=== PATIENT | female | born 1955 | race Caucasian/White ===

== ENCOUNTER → 2016-11-22 | Outpatient (CLI) | payer BC ==
[~2016-11-22] MED LIST: MULT-506 PO; VITAMIN C PO
[2016-11-22 12:28] LABS: HEMATOCRIT 41.1 % (37-47); MEAN CELL VOLUME 86.3 fL (80-100); MEAN CORPUSCULAR HEMOGLOBIN 30.3 pg (25-34); MEAN PLATELET VOLUME 11.4 fL (7.4-10.4); PLATELET COUNT 283 K/uL (130-400); RED BLOOD COUNT 4.76 M/uL (4.2-5.4); WHITE BLOOD COUNT 4.42 K/uL (4.8-10.8)
[2016-11-22 12:44] LABS: BLOOD UREA NITROGEN 17 mg/dl (7-18); BUN/CREATININE RATIO 24.9 (10-20); CARBON DIOXIDE 25 mmol/L (21-32); CHLORIDE 105 mmol/L (98-107); CREATININE 0.67 mg/dl (0.60-1.20); GLUCOSE 277 mg/dl (70-99); POTASSIUM 3.9 mmol/L (3.5-5.1); SODIUM 138 mmol/L (136-145)
== END | disposition home or self-care (01) ==
LOC: C.CPL 11:35
PROVIDERS: ATTEND Family Medicine
DX: Z01.818 Encounter for other preprocedural examination (principal); M65.331 Trigger finger, right middle finger

== ENCOUNTER → 2016-11-30 | Day surgery (SDC) | payer BC ==
[2016-11-03 15:18] VITALS: Ht 147.3 cm; Wt 59.1 kg
[~2016-11-30] VITALS: Ht 147.3 cm; Wt 59.1 kg
[~2016-11-30] MED LIST changes: +BUPIVACAINE/EPINEPHRINE 0.5% MPF 1:200,000 30 ML VIAL ONE; +CLINDAMYCIN PHOS 150 MG/ML 2 ML VIAL IV SCH; +FENTANYL CITRATE INJ 50 MCG/1 ML 2 ML VIAL ONE; +LACTATED RINGER'S 1000ML 1,000 ML IV SCH; +LIDOCAINE HCL 2% 2 ML VIAL (20MG/ML) ONE; +LIDOCAINE/EPINEPHRINE 1% INJ 50 ML VIAL ONE; +MIDAZOLAM HCL 1 MG/ML 2ML VIAL ONE; +PROPOFOL IV EMULSION 10 MG/ML 20 ML VIAL IV ONE
[2016-11-30 07:19] VITALS: BP 156/84; PULSE 68; TEMP 36.5; O2SAT 96
--- NOTE | 2016-11-30 08:51 | CONSULTATION REPORT ---
DATE OF CONSULTATION: 11/30/2016 DATE: 11/30/2016. Prior to starting trigger finger surgery at the surgery center she is supposed to be a diet controlled diabetic. She has been on oral medications previously which did not agree with her. She has not been on any medications recently. She had not had any reassessment of her blood sugars recently. Her preop blood sugar nonfasting was 277. This morning is 302 with repeat of 316. Discussed with patient and anesthesia, increased risk of complications, infection and wound problems as well as general negative effects on health related to controlled blood sugars. The surgery is postponed because of uncontrolled hyperglycemia and the patient is referred today to see her family doctor for further evaluation and treatment. Once her blood sugars are under control, we can then proceed with trigger finger surgery.
--- NOTE | 2016-11-30 09:29 | Progress Note ---
Progress Note Date of Service Nov 30, 2016. Progress Note Poorly controlled blood sugars noted on am labs. Discussed that the patient is still low risk for immediate complications in the intraop and immediate post operative period but that poor wound healing and infectious complications are increased. The decision to proceed or delay surgery was thus left to the surgeon and patient. After speaking with the patient, Dr Posadas recommended delay to evaluate and manage her diabetes before elective surgery. Her primary care doc was called by the nursing staff and she was set up for an appointment with them this morning. Blood sugars were not treated here to avoid hypoglycemia. She was instructed to remain fasting before visiting primary care so that fasting labs could be drawn if desired.
== END | disposition home or self-care (01) ==
LOC: X.SURG 07:04
PROVIDERS: ATTEND Physical Medicine & Rehabilitation Sports Medicine
DX: M65.331 Trigger finger, right middle finger (principal); Z53.09 Procedure and treatment not carried out because of other contraindication; E11.9 Type 2 diabetes mellitus without complications; J45.909 Unspecified asthma, uncomplicated; K21.9 Gastro-esophageal reflux disease without esophagitis; K44.9 Diaphragmatic hernia without obstruction or gangrene; Z88.5 Allergy status to narcotic agent; Z88.0 Allergy status to penicillin; Z98.890 Other specified postprocedural states

== ENCOUNTER → 2017-11-19 | Outpatient (CLI) | payer BC, OTHER ==
[~2017-11-19] MED LIST changes: -BUPIVACAINE/EPINEPHRINE 0.5% MPF 1:200,000 30 ML VIAL ONE; -CLINDAMYCIN PHOS 150 MG/ML 2 ML VIAL IV SCH; -FENTANYL CITRATE INJ 50 MCG/1 ML 2 ML VIAL ONE; -LACTATED RINGER'S 1000ML 1,000 ML IV SCH; -LIDOCAINE HCL 2% 2 ML VIAL (20MG/ML) ONE; -LIDOCAINE/EPINEPHRINE 1% INJ 50 ML VIAL ONE; +LVMI SC; -MIDAZOLAM HCL 1 MG/ML 2ML VIAL ONE; -PROPOFOL IV EMULSION 10 MG/ML 20 ML VIAL IV ONE
== END | disposition home or self-care (01) ==
LOC: C.RDSM 18:39
PROVIDERS: ATTEND Physical Medicine & Rehabilitation Sports Medicine
DX: M79.642 Pain in left hand (principal)

== ENCOUNTER → 2017-11-29 | Day surgery (SDC) | payer OTHER ==
[2017-11-22 11:27] VITALS: Ht 147.3 cm; Wt 61.4 kg
[~2017-11-29] VITALS: Ht 147.3 cm; Wt 61.4 kg
[~2017-11-29] MED LIST changes: +ATROPINE SULFATE 0.1 MG/ML 5ML SYR IV PRN; +BUPIVACAINE/EPINEPHRINE 0.5% MPF 1:200,000 30 ML VIAL ONE; +CLINDAMYCIN PHOS 150 MG/ML 2 ML VIAL ONE; +EpHEDrine SULFATE INJ 50 MG/ML AMP IV PRN; +FENTANYL CITRATE INJ 50 MCG/1 ML 2 ML VIAL IV PRN; +FENTANYL CITRATE INJ 50 MCG/1 ML 2 ML VIAL ONE; +HYDROCODONE/ACETAMIN 5/325MG TAB PO PRN; +LACTATED RINGER'S 1000ML 1,000 ML IV SCH; +LIDOCAINE/EPINEPHRINE 1% 20 ML VIAL ONE; +MIDAZOLAM HCL 1 MG/ML 2ML VIAL ONE; -MULT-506 PO; +MoRPHine SULFATE 2 MG/ML CARP IV PRN; +MoRPHine SULFATE 4 MG/ML 1 ML CARP\\VIAL IV PRN; +ONDANSETRON INJ 2 MG/ML 2 ML VIAL IV PRN; +SODIUM CHLORIDE 0.9% 1000ML 1,000 ML IV SCH; +TRAMADOL HCL 50 MG TAB PO PRN; +ULT50X PO; -VITAMIN C PO
[2017-11-29] MEDS: CLINDAMYCIN 600 MG/54 ML D5W IV SCH ×2 (06:58→08:28)
--- NOTE | 2017-11-29 08:08 | History & Physical Bridge Note ---
H&P Re-Evaluation Bridge Note: I have examined the patient, reviewed the History & Physical and in the interval since the performance of the History & Physical I have noted the following changes of clinical significance: No changes noted
--- NOTE | 2017-11-29 09:44 | [facility] Post Operative Brief Note ---
Immediate Operative Summary Operative Date Nov 29, 2017. Pre-Operative Diagnosis Right long finger trigger digit left ring finger trigger digit Post-Operative Diagnosis Same Procedure(s) Performed Right long finger trigger digit release left ring finger trigger digit release Surgeon augustin Welding Machine Operator/Tender Surgeon(s) miley Estimated Blood Loss None Findings Consistent with Post-Op Diagnosis Specimens None Drains None Anesthesia Type MAC Complication(s) none Disposition Accompanied Pt To Recovery: no Disposition: Recovery Room / PACU
[2017-11-29 09:49] VITALS: TEMP 36.4
--- NOTE | 2017-11-29 09:51 | Discharge Instructions-SurgCtr ---
Discharge Instructions Date of Service Nov 29, 2017. Visit Reason for Visit: Right Middle & Left Ring Trigger Fingers Discharge Discharge Diagnosis / Problem: Right middle and left ring triffer fingers Discharge Goals Goal(s): Decrease discomfort, Improve function, Increase independence Activity Recommendations Activity Limitations: per Instructions/Follow-up section Weightbearing Status: Left weightbearing (as tolerated), Right weightbearing ( as tolerated) Anesthesia . Post Anesthesia Instructions: If you have had General Anesthesia or IV Sedation: * Do not drive today. * Resume driving when surgeon permits. * Do not make important decisions or sign legal documents today. * Call surgeon for: 1. Temperature elevations greater than 101 degrees F. 2. Uncontrollable pain. 3. Excessive bleeding. 4. Persistent nausea and vomiting. 5. Medication intolerance (nausea, vomiting or rash). * For nausea and vomiting use only clear liquids such as: tea, soda, bouillon until nausea subsides, then gradually increase diet as tolerated. * If you have any concerns or questions, call your surgeon's office. If physician is unavailable and it is an emergency, call 911 or go to the nearest emergency room. . Instructions / Follow-Up Instructions / Follow-Up The following are instructions to follow after minor hand surgery. ACTIVITY RECOMMENDATIONS: * Minimize activity until your first visit after surgery. * No excessive walking, jogging, sports or laboring. * Return to activity is individualized. Most patients are able to return to everyday activities within 2 weeks. * Return to sports or intensive labor usually occurs at 1-2 months. * DRIVING: Driving may be resumed when you feel you have adequate pain control and use of the hand. * BATHING: You may shower or sponge-bathe immediately after surgery. The dressing will need to be covered with a plastic bag or plastic wrap until the dressing is changed on the fourth or fifth day after surgery. Once the dressing has been changed on the fourth or fifth day after surgery, you may shower and get the incision wet. * Wash with regular soap and water. * Do not bathe (submerge the incision), soak, swim or use a hot tub until the incision is completely healed over with normal skin and the doctor has given the OK to proceed. * There is no need to apply any ointments, powders or salves to your incision. * Do not apply alcohol or hydrogen peroxide directly to the incision. Diluted peroxide (50:50 mixture with sterile saline) may be used to clean dried blood from around the incision area. WORK/SCHOOL: * You may return to sedentary work or school when you are feeling comfortable. This is usually 3-7 days after surgery. * Expect increased discomfort with increased activity. Continue to elevate and ice the hand as much as possible. DIET: * Resume previous diet. MEDICATIONS: * You will have a prescription for pain medication and an anti-inflammatory medication after surgery. Use the pain pills for severe pain and the anti-inflammatory for less severe pain. * Once the pain pills have run out, try to use the anti-inflammatory. If this is not effective then contact the office for assistance. * The pain medication may cause nausea, constipation and sleepiness. You should see how they affect you before driving or similar activity. * The anti-inflammatory may cause stomach upset and bleeding. If this occurs, let your doctor know immediately . * Some patients may need blood clot prevention. This can be done with either a pill or a simple shot. Your doctor will advise you on when to begin these medications and how to take them. * Do not take aspirin or other anti-inflammatory products (i.e. Advil or Aleve ) if taking blood thinner medication. * Take a stool softener like Colace or a stimulant like Senokot to prevent constipation. SPECIAL CARE INSTRUCTIONS: ICE: * Do not apply ice directly to the skin. * Use a thin dressing or stockinet between the skin and ice bag. The dressing in place after surgery will suffice. * Apply ice for 20-30 minutes and repeat every 2-4 hours. This is especially important for the first 3-7 days after surgery. * Once the pain improves, use ice as needed. ELEVATION: * Keep your hand elevated at or above the level of your heart as much as possible. * Expect some increased discomfort and swelling if you allow your hand to hang down for any length of time. DRESSING: * Your dressing will be changed 4-5 days after surgery by the physical therapist or physician's promotions assistant. Leave your dressing intact until this time. * You may then change your dressing daily with clean dry gauze or Band-aids and a soft wrap or stockinet. * Always wash your hands prior to touching the incision area. * Once the stitches are removed, you may leave the wound open to air or cover with a thin bandage. * There is no need to apply any ointments, powders or salves to your incision. * Expect some bloody drainage for the first few days after surgery. * Leave the tape strips in place (if present) for 5-7 days. * The initial dressing after surgery may become soaked with blood or fluid which is normal. You may reinforce your dressing with clean, dry gauze as needed. BRACE: * Bracing is generally not needed after routine hand surgery. THERAPY: * Physical therapy may be prescribed after your surgery. * For carpal tunnel and trigger digit surgery you may begin moving your fingers and wrist immediately after surgery as tolerated. * Be careful to not overuse. * Once the sutures are removed, further range of motion exercises can be performed. * Hand incisions may be very sensitive for a few months after surgery so avoid excessive pressure on the incision. If necessary, use a padded weightlifters' glove. * You may massage the incision with skin cream to make it less sensitive and reduce scarring. * Hand strength usually returns with normal use. * If needed, squeezing a soft sponge or Play-dough may help. * Your doctor will recommend physical therapy if necessary. PROBLEMS/QUESTIONS: * If you have any problems such as severe pain, numbness, tingling or high fevers or if you have any questions, please contact the office at [phone]. * It is not uncommon to have some numbness and tingling after the surgery especially if you have had a nerve block done. This should gradually improve over the first 1- 2 days. If this persists longer or worsens then contact the office. FOLLOW UP VISIT: * If not already scheduled, please call the office at to schedule follow-up appointments for approximately 10 days, 6 weeks and 3 months after surgery. *You have a follow-up appointment scheduled on December 03, 2017 at 7:45 AM for dressing change at [facility]. *You have a follow-up scheduled with Dr. Posadas on December 14, 2017 at 10:00 AM. Diet Recommendations Home Diet: no limitations, resume previous diet Fluid Restriction: None Procedures Procedures Performed: Right long finger trigger digit release left ring finger trigger digit release Pending Studies Studies pending at discharge: no Medical Emergencies . Who to Call and When: Medical Emergencies: If at any time you feel your situation is an emergency, please call 911 immediately. . Non-Emergent Contact Non-Emergency issues call your: Surgeon Call Non-Emergent contact if: temperature is above 101, your pain is not controlled, wound has increased drainage, wound has increased redness, wound has increased pain, you have any medication questions . . "Provider Documentation" section prepared by Paulette Echavarria. . [place] Drug Monitoring Program Search Results: patient reviewed within database, no issues identified
--- NOTE | 2017-11-29 09:55 | [facility] Operative Report ---
Operative Report Operative Date Nov 29, 2017. Pre-Operative Diagnosis Right long finger trigger digit left ring finger trigger digit Post-Operative Diagnosis Same Procedure(s) Performed Right long finger trigger digit release left ring finger trigger digit release Surgeon augustin Cold Rolling Coordinator Surgeon(s) miley Estimated Blood Loss None Specimens None Drains None Anesthesia Type MAC Complication(s) none Disposition no Recovery Room / PACU Indications Patient is a 62-year-old female who presented to our office with complaints of locking and catching and pain of her left ring finger and right middle finger. This been ongoing for many months. She has failed conservative treatment which has consisted corticosteroid injections. She continues to have pain and locking. X-rays of both hands were taken and show no bony abnormality. Surgical intervention was discussed and she wished to proceed with surgery. Risks and complications were discussed and informed consent was obtained. Description of Procedure Patient was taken to the operating room and placed under IV sedation. She was given 600 mg of IV Cleocin for surgical prophylaxis. Timeout was performed. She was given to local anesthetics into her left ring finger and right middle finger. She was prepped and draped in routine sterile fashion. I was present during the entire case, please see Dr. Posadas's operative report for further detail. Patient was awakened and transferred to the recovery room in stable condition. I attest to the content of the Intraoperative Record and any orders documented therein. Any exceptions are noted below.
--- NOTE | 2017-11-29 09:55 | [facility] Operative Report ---
Operative Report Operative Date Nov 29, 2017. Pre-Operative Diagnosis Right long finger trigger digit left ring finger trigger digit Post-Operative Diagnosis Same Procedure(s) Performed Right long finger trigger digit release left ring finger trigger digit release Surgeon augustin Television Inspector Surgeon(s) miley Estimated Blood Loss None Findings Thickened A1 carmenza Specimens None Anesthesia Local with IV sedation Complication(s) None Disposition Recovery Room / PACU Indications Patient's 62-year-old female with symptomatic trigger digit digits of the right long and left ring fingers Description of Procedure Informed consent was obtained. The patient was identified as Jazmine Chávez. The patient identified the operative site as the right long finger and left ring finger which I marked with my initials. A preoperative surgical timeout was performed. A preop dose of IV antibiotics was given. The patient was positioned supine on the stretcher with both arms positioned on hand tables. Tourniquet was applied to the right forearm and left upper arm. The both limbs were prepped and draped in the usual sterile fashion. The examination under anesthesia showed palpable nodules at the level of the A1 carmenza but no passive triggering or locking.. DVT prophylaxis was not indicated. The limb was exsanguinated with the Esmarch. Tourniquet inflated to 225 mmHg. There was minor loss of terminal extension of both fingers which was gently manipulated. A transverse incision was made using the distal palmar crease overlying the right ring finger finger. Blunt dissection was performed in the midline. The tendon sheath was identified. The A1 carmenza was identified and divided in line with the incision. The carmenza was markedly thickened. Examination then revealed that there was no triggering. The tendon appeared normal except for a small thickening. The incision on the right long finger was closed. At the same time the left ring finger was operated on in the identical fashion. There again was no passive triggering or locking but there was thickening of the A1 carmenza albeit less so than the contralateral side. The tendon was normal. The identical procedure was performed. The wound was then irrigated with sterile saline and then closed with 4-0 nylon using interrupted horizontal mattress stitches. A soft sterile dressing was applied. The tourniquet was let down after approximately 10 minutes of inflation on each side. The patient was then awakened from anesthesia without difficulty and taken to the recovery room in stable condition. There were no specimens or complications. Counts were correct in the case. Blood loss was minimal. At the conclusion the operation spoke to patient's family informed them of my findings and gave detailed postoperative instructions. I attest to the content of the Intraoperative Record and any orders documented therein. Any exceptions are noted below.
--- NOTE | 2017-11-29 10:00 | Anesthesia Progress Nt - [facility] ---
Anesthesia Post Op Note Date & Time Nov 29, 2017 at 10:00 Vital Signs Pain Intensity: 0 Vital Signs Past 12 Hours Date Time Temp Pulse Resp B/P (MAP) Pulse Ox O2 Delivery O2 Flow Rate FiO2 11/29/17 08:08 36.8 64 18 166/94 (118) 98 Room Air Notes Mental Status: alert / awake / arousable, participated in evaluation Pt Amnestic to Procedure: Yes Nausea / Vomiting: adequately controlled Pain: adequately controlled Airway Patency, RR, SpO2: stable & adequate BP & HR: stable & adequate Hydration State: stable & adequate Anesthetic Complications: no major complications apparent
[2017-11-29 10:20] VITALS: BP 147/74; PULSE 51; O2SAT 98
== END | disposition home or self-care (01) ==
LOC: X.SURG 07:54
PROVIDERS: ATTEND Physical Medicine & Rehabilitation Sports Medicine
DX: M65.342 Trigger finger, left ring finger (principal); M65.331 Trigger finger, right middle finger; J45.909 Unspecified asthma, uncomplicated; E11.9 Type 2 diabetes mellitus without complications; Z88.6 Allergy status to analgesic agent; Z88.0 Allergy status to penicillin; E66.3 Overweight; Z79.4 Long term (current) use of insulin; Z98.51 Tubal ligation status; Z98.818 Other dental procedure status; Z98.890 Other specified postprocedural states

== ENCOUNTER 2021-06-24 00:46 | Observation (INO) ==
[2021-06-24] MEDS ORDERED: MoRPHine SULFATE 4 MG/ML 1 ML CARP\\VIAL IV STA ×2 (00:58→01:45)
[2021-06-24] MEDS ORDERED: SODIUM CHLORIDE 0.9% 500 ML IV STA (00:58)
[2021-06-24] MEDS ORDERED: ONDANSETRON INJ 2 MG/ML 2 ML VIAL IV STA (00:58)
--- NOTE | 2021-06-24 01:01 | Emergency Department Note ---
Impression & Plan Kidney stone on left side Admission ED Provider Note HPI: The patient is a 66-year-old female with history of type 2 diabetes, hypertension, presents the emergency department with a chief complaint of left flank pain that has been worsening throughout the day. Patient states that she had pain in the area of her left flank earlier this morning that resolved. She states that then returned later in the afternoon and was more severe in nature, states it was associated with some diminished urine output as well as some nausea and vomiting. On arrival to the ED she complains of severe pain in her left flank, she is in mild distress secondary to pain on arrival, she is saturating well on room air but is noted to be hypertensive. ROS: -: Left-sided flank pain *10 point review systems was conducted and is otherwise negative unless stated above *Outpatient medications and allergy history reviewed PE: General: Alert HEENT: Normocephalic, atraumatic, trachea midline Eyes: Extraocular eye movement is intact, no scleral erythema Pulmonary: Clear to auscultation bilaterally, no wheezing Cardio: Regular rate and rhythm GI: Abdomen is soft, nontender : No suprapubic tenderness, there is left flank tenderness with palpation MSK: No evidence of trauma or malformation of the extremities, no edema Skin: No evidence of rash Neuro: Alert, no focal deficits Psychiatric: Cooperative cardiac monitor technician: Order placed, patient is in sinus rhythm CT ABDOMEN & PELVIS Without Contrast: There is a 7 mm stone in the distal left ureter with moderate upstream hydronephrosis. Small hiatal hernia. 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 Radiologist: Jose Martin MD Medical Decision Making: Patient presented to the emergency department with some severe left-sided flank pain. CT imaging shows evidence of a 7 mm kidney stone with some associated left-sided hydronephrosis. Patient required multiple doses of morphine as well as Toradol here in the ED for pain. Her urinalysis does not show evidence of infection, kidney function appears stable on lab work. Given the patient's intractable pain and the size of the stone I did discuss the case with the on- call hospitalist and the patient was admitted to the hospital for further management and urology consultation. Patient was admitted in stable condition. * Diagnosis: Left flank pain, left-sided kidney stone with hydronephrosis * Disposition: Admission Zoltan Lomas DO Emergency Medicine Past Med/Surg History Medical History (Updated 06/24/21 @ 04:06 by Zoltan Lomas DO) Asthma A CHILD Diabetes mellitus, type 2 IDDM Hypertension Surgical History History of bilateral tubal ligation History of breast biopsy LEFT BREAST - BENIGN History of cataract surgery BL History of tooth extraction Hx of lumpectomy LEFT BREAST - BENIGN Status post trigger finger release X 3 Family History Grandmother Family hx of colon cancer Family/Other Family history of diabetes mellitus Social History Smoking Status: Never smoker Second Hand Exposure: Yes; Hx Alcohol Use: No Hx Substance Use: No Preferred Language: Sinhala Communication Ability: Effective Identification Technician Required: No Beliefs That Will Affect Care: None Current Living Situation: Family Current Living Situation Comment: 17 YR OLD GRANDSON LIVES WITH PT. Feels Safe at Home: Yes Assistive Devices: Glasses Allergies Allergies Allergy/AdvReac Type Severity Reaction Status Date / Time Cephalosporins Allergy Intermediate HIVES Verified 06/24/21 01:20 codeine Allergy Intermediate HIVES Verified 06/24/21 01:20 Penicillins Allergy Intermediate HIVES Verified 06/24/21 01:20 tramadol AdvReac Intermediate Unknown Verified 06/24/21 01:20 Home Meds Home Medications Medication Instructions Recorded Confirmed calcium carbonate 600 mg calcium 600 mg PO QAM 06/26/18 06/24/21 (1,500 mg) tablet (Calcium) cyanocobalamin (vitamin B-12) 1,000 mcg PO QAM 06/26/18 06/24/21 1,000 mcg tablet (Vitamin B-12) insulin detemir U-100 100 unit/mL 20 unit SUBCUT HS 06/26/18 06/24/21 subcutaneous solution (Levemir U-100 Insulin) lisinopril 10 mg tablet 10 mg PO QAM 01/21/19 06/24/21 timolol maleate 0.5 % eye drops 1 drp OPHTHALMIC (EYE) QAM 06/24/21 06/24/21 travoprost 0.004 % eye drops 1 drp OPHTHALMIC (EYE) HS 06/24/21 06/24/21 Results & Data (ED) Vital Signs Vital Signs - 24 hr 06/24/21 00:50 06/24/21 01:22 06/24/21 02:14 Temperature 36.5 C Temperature Source Temporal Artery Scan Pulse Rate 80 Pulse Rate [Left Apical] 62 Respiratory Rate 18 18 Respiratory Effort / Characteristics Non-Labored Spontaneous Non-Labored Spontaneous Respiratory Depth Normal Normal Respiratory Pattern Regular Regular Blood Pressure 229/100 H Blood Pressure [Right Arm] 207/83 H Blood Pressure Mean 143 Blood Pressure Mean [Right Arm] 124 Blood Pressure Position Sitting Blood Pressure Position [Right Arm] Lying Pulse Oximetry 99 98 81 L Oxygen Delivery Method Room Air Room Air Room Air Oxygen Flow Rate Sepsis Recent Fever Within 48 Hours No Sepsis New/Unexplained Change in Mental Status N/A Sepsis Action Taken by Nursing No Action Required 06/24/21 02:20 06/24/21 02:37 Temperature Temperature Source Pulse Rate Pulse Rate [Left Apical] 61 Respiratory Rate 14 Respiratory Effort / Characteristics Non-Labored Spontaneous Respiratory Depth Normal Respiratory Pattern Blood Pressure Blood Pressure [Right Arm] 177/79 H Blood Pressure Mean Blood Pressure Mean [Right Arm] 111 Blood Pressure Position Blood Pressure Position [Right Arm] Lying Pulse Oximetry 99 97 Oxygen Delivery Method Nasal Cannula Nasal Cannula Oxygen Flow Rate 2 2 Sepsis Recent Fever Within 48 Hours Sepsis New/Unexplained Change in Mental Status Sepsis Action Taken by Nursing Laboratory Data Result diagrams: 06/24/21 01:20 06/24/21 01:20 Lab Results 06/24/21 06/24/21 06/24/21 Range/Units 01:20 01:20 02:00 WBC 11.63 H (4.8-10.8) K/uL RBC 4.76 (4.2-5.4) M/uL Hgb 14.2 (12.0-16.0) g/dL Hct 42.0 (37-47) % MCV 88.2 (80-100) fL MCH 29.8 (25-34) pg MCHC 33.8 (32-36) g/dL RDW Std Deviation 41.7 (36.4-46.3) fL RDW Coeff of Bridgette 12.9 (11.5-14.5) % Plt Count 328 (130-400) K/uL MPV 10.9 H (7.4-10.4) fL Immature Gran % (Auto) 0.1 % Neut % (Auto) 54.6 % Lymph % (Auto) 36.5 % [place] % (Auto) 7.0 % Eos % (Auto) 1.5 % Baso % (Auto) 0.3 % Neut # (Auto) 6.36 (1.4-6.5) K/uL Lymph # (Auto) 4.25 H (1.2-3.4) K/uL [place] # (Auto) 0.81 H (0.11-0.59) K/uL Eos # (Auto) 0.17 (0-0.5) K/uL Baso # (Auto) 0.03 (0-0.2) K/uL Immature Gran # (Auto) 0.01 (0.00-0.02) K/uL Sodium 141 (136-145) mmol/L Potassium 2.7 L (3.5-5.1) mmol/L Chloride 105 (98-107) mmol/L Carbon Dioxide 27 (21-32) mmol/L Anion Gap 9.0 (3-11) BUN 16 (7-18) mg/dl Creatinine 0.99 (0.6-1.2) mg/dl Est Cr Clr Drug Dosing Not Reportable Est GFR ( Amer) 68.8 ml/min Est GFR (Non-Af Amer) 59.4 ml/min BUN/Creatinine Ratio 15.9 (10-20) Glucose 169 H (70-99) mg/dl Calcium 9.5 (8.5-10.1) mg/dl Total Bilirubin 0.4 (0.2-1) mg/dl AST 13 L (15-37) U/L ALT 20 (12-78) U/L Alkaline Phosphatase 97 (45-117) U/L Total Protein 8.0 (6.4-8.2) gm/dl Albumin 4.2 (3.4-5.0) gm/dl Globulin 3.8 (2.5-4.0) gm/dl Albumin/Globulin Ratio 1.1 (0.9-2) Lipase 232 (73-393) U/L Urine Color Yellow Urine Appearance Clear (Clear) Urine pH 8.5 H (4.5-7.5) Ur Specific [place] 1.009 (1.000-1.030) Urine Protein Trace H (Negative) Urine Glucose (UA) 1+ H (Negative) Urine Ketones Negative (Negative) Urine Blood 2+ H (Negative) Urine Nitrite Negative (Negative) Urine Bilirubin Negative (Negative) Urine Urobilinogen Negative (Negative) Ur Leukocyte Esterase Negative (Negative) Urine WBC (Auto) 0 (0-5) /hpf Urine RBC (Auto) 10-30 H (0-4) /hpf U Hyaline Cast (Auto) 0 (0-5) /lpf U Epithel Cells (Auto) 10-20 H (0-5) /lpf Urine Bacteria (Auto) Negative (Negative) Administered Medications Potassium Chloride (K Oswaldo / Wtr) 10 meq in 100 mls @ 100 mls/hr IV Q1H IRCKIE Stop: 06/24/21 05:16 Last Admin: 06/24/21 03:49 Dose: 100 mls/hr Documented by: [id number] Ciprofloxacin (Cipro / D5w) 400 mg in 200 mls @ 200 mls/hr IV NOW STA Stop: 06/24/21 04:22 Last Admin: 06/24/21 03:48 Dose: 200 mls/hr Documented by: [id number] Discontinued Medications Sodium Chloride (Nss) 500 mls @ 999 mls/hr IV .Q31M STA Stop: 06/24/21 01:28 Last Infusion: 06/24/21 01:54 Dose: 0 mls/hr Documented by: [id number] Admin: 06/24/21 01:19 Dose: 999 mls/hr Documented by: [id number] Ketorolac Tromethamine (Ketorolac Tromethamine 15 Mg/Ml Vial) 15 mg IV NOW ONE Stop: 06/24/21 01:46 Last Admin: 06/24/21 01:52 Dose: 15 mg Documented by: [id number] Labetalol HCl (Labetalol Hcl Iv 5 Mg/Ml 20ml) 10 mg IV NOW STA Stop: 06/24/21 03:15 Last Admin: 06/24/21 03:26 Dose: Not Given Documented by: [id number] Morphine Sulfate (Morphine Sulfate 4 Mg/Ml 1 Ml Carp\Vial) 4 mg IV NOW STA Stop: 06/24/21 00:59 Last Admin: 06/24/21 01:16 Dose: 4 mg Documented by: [id number] Morphine Sulfate (Morphine Sulfate 4 Mg/Ml 1 Ml Carp\Vial) 4 mg IV NOW STA Stop: 06/24/21 01:46 Last Admin: 06/24/21 01:50 Dose: 4 mg Documented by: [id number] Ondansetron HCl (Ondansetron Inj 2 Mg/Ml 2 Ml Vial) 4 mg IV NOW STA Stop: 06/24/21 00:59 Last Admin: 06/24/21 01:16 Dose: 4 mg Documented by: [id number] Discharge Plan Visit Data Chief Complaint: Flank Pain Stated Complaint: LWR BACK INTO ABD PAIN,NAUSEA,VOMETING ED Provider: Zoltan Lomas Discharge Problem: Kidney stone on left side Forms Stand Alone Forms: [facility] Prescriptions Prescriptions: No Action lisinopril 10 mg Tablet 10 mg PO QAM RF: 0 cyanocobalamin (vitamin B-12) [Vitamin B-12] 1,000 mcg Tablet 1,000 mcg PO QAM RF: 0 calcium carbonate [Calcium 600] 600 mg calcium (1,500 mg) Tablet 600 mg PO QAM RF: 0 Levemir U-100 Insulin 100 unit/mL Solution 20 unit SUBCUT HS RF: 0 travoprost 0.004 % drops 1 drp ophthalmic (eye) HS RF: 0 timolol maleate 0.5 % drops 1 drp ophthalmic (eye) QAM RF: 0 Referrals Referrals: Gurdeep Jensen MD [Primary Care Provider] -
[2021-06-24 01:29] LABS: Basophils # (auto) 0.03 K/uL (0-0.2); Basophils % (auto) 0.3 %; Eosinophils # (auto) 0.17 K/uL (0-0.5); Eosinophils % (auto) 1.5 %; Hemoglobin 14.2 g/dL (12.0-16.0); Immature Granulocytes # (auto) 0.01 K/uL (0.00-0.02); Immature Granulocytes % (auto) 0.1 %; Lymphocytes # (auto) 4.25 K/uL (1.2-3.4); Lymphocytes % (auto) 36.5 %; Mean Corpuscular Hemoglobin 29.8 pg (25-34); Mean Corpuscular Hgb Conc 33.8 g/dL (32-36); Mean Corpuscular Volume 88.2 fL (80-100); Mean Platelet Volume 10.9 fL (7.4-10.4); Monocytes # (auto) 0.81 K/uL (0.11-0.59); Neutrophils # (auto) 6.36 K/uL (1.4-6.5); Neutrophils % (auto) 54.6 %; Platelet Count 328 K/uL (130-400); RDW Coefficient of Variation 12.9 % (11.5-14.5); RDW Standard Deviation 41.7 fL (36.4-46.3); Red Blood Count 4.76 M/uL (4.2-5.4); White Blood Count 11.63 K/uL (4.8-10.8)
[2021-06-24] MEDS ORDERED: KETOROLAC TROMETHAMINE 15 MG/ML VIAL IV ONE (01:45)
[2021-06-24 01:46] LABS: Alanine Aminotransferase 20 U/L (12-78); Albumin Level 4.2 gm/dl (3.4-5.0); Aspartate Aminotransferase 13 U/L (15-37); BUN Creatinine Ratio 15.9 (10-20); Blood Urea Nitrogen 16 mg/dl (7-18); Calcium 9.5 mg/dl (8.5-10.1); Carbon Dioxide 27 mmol/L (21-32); Chloride 105 mmol/L (98-107); Est GFR (African American) 68.8 ml/min; Est GFR (Non-African American) 59.4 ml/min; Glucose 169 mg/dl (70-99); Lipase 232 U/L (73-393); Potassium 2.7 mmol/L (3.5-5.1); Sodium 141 mmol/L (136-145)
[2021-06-24 01:49] LABS: Albumin Globulin Ratio 1.1 (0.9-2); Alkaline Phosphatase 97 U/L (45-117); Bilirubin,Total 0.4 mg/dl (0.2-1); Globulin 3.8 gm/dl (2.5-4.0)
[2021-06-24 02:22] LABS: Appearance Urine Clear (Clear); Bacteria Urine Automated Negative (Negative); Bilirubin Urine Negative (Negative); Blood Urine 2+ (Negative); Cast Urine Automated 0 /lpf (0-5); Color Urine Yellow; Glucose Urine UA 1+ (Negative); Ketones Urine Negative (Negative); Leukocyte Esterase Urine Negative (Negative); Nitrite Urine Negative (Negative); Specific Gravity Urine 1.009 (1.000-1.030); Urobilinogen Urine Negative (Negative); WBC Urine Automated 0 /hpf (0-5); pH Urine 8.5 (4.5-7.5)
[2021-06-24 02:24] LABS: Protein Urine Trace (Negative)
[2021-06-24] MEDS ORDERED: LABETALOL HCL IV 5 MG/ML 20ML IV STA (03:14)
--- NOTE | 2021-06-24 03:18 | History & Physical Report ---
Date of Service June 24, 2021 Assessment & Plan (1) Kidney stone on left side: Plan: 7 mm distal left ureteral stone/moderate hydronephrosis- NPO Cipro 40 mg IV every 12 hours Acetaminophen 650 mg p.o. every 6 hours as needed mild pain or fever Dilaudid 0.25 mg IV every 3 hours as needed moderate pain Dilaudid 0.5 mg IV every 3 hours as needed severe pain NSS + KCl 20 mEq at 100 mils per hour Consult urology (2) Hydronephrosis of left kidney: Plan: See above (3) Diabetes: Plan: Hold Levemir this evening. Resume Levemir 20 with subcu at bedtime tomorrow evening Place on Accu-Cheks before meals and at bedtime with NovoLog coverage per scale Check hemoglobin A1c (4) Hypertension: Plan: Hold lisinopril (5) Glaucoma: Plan: Continue usual eyedrops timolol maleate and travoprost History of Present Illness Chief Complaint: The patient presents to the emergency department with complaint of worsening left flank pain, nausea and vomiting, worsening throughout the day. Primary Care Provider: Gurdeep Jensen MD The patient is a 66-year-old female with a past medical history including diabetes mellitus, facial cellulitis, daysi B12 deficiency, hypertension and glaucoma. She has not had any previous episodes of kidney stones, though she has 2 sons that do. She presents to the emergency department symptoms as noted above. Imaging in the emergency department, CT scan abdomen pelvis without contrast: 7 mm distal left ureteral stone with moderate left hydronephrosis. L5-S1 bilateral foraminal stenosis The patient received from the ED the following Toradol 15 mg IV x1, morphine sulfate 4 mg IV x2, and normal saline 500 mils Allergies Allergy/AdvReac Type Severity Reaction Status Date / Time Cephalosporins Allergy Intermediate HIVES Verified 06/24/21 01:20 codeine Allergy Intermediate HIVES Verified 06/24/21 01:20 Penicillins Allergy Intermediate HIVES Verified 06/24/21 01:20 tramadol AdvReac Intermediate Unknown Verified 06/24/21 01:20 Home Medications Medication Instructions Recorded Confirmed Type calcium carbonate 600 mg calcium 600 mg PO QAM 06/26/18 06/24/21 History (1,500 mg) tablet (Calcium) cyanocobalamin (vitamin B-12) 1,000 mcg PO QAM 06/26/18 06/24/21 History 1,000 mcg tablet (Vitamin B-12) insulin detemir U-100 100 unit/mL 20 unit SUBCUT HS 06/26/18 06/24/21 History subcutaneous solution (Levemir U-100 Insulin) lisinopril 10 mg tablet 10 mg PO QAM 01/21/19 06/24/21 History timolol maleate 0.5 % eye drops 1 drp OPHTHALMIC (EYE) QAM 06/24/21 06/24/21 History travoprost 0.004 % eye drops 1 drp OPHTHALMIC (EYE) HS 06/24/21 06/24/21 History Past Med/Surg History Medical History (Updated 06/24/21 @ 04:25 by Ronald Rowland MD) Asthma A CHILD Diabetes mellitus, type 2 IDDM Glaucoma Hypertension Surgical History History of bilateral tubal ligation History of breast biopsy LEFT BREAST - BENIGN History of cataract surgery BL History of tooth extraction Hx of lumpectomy LEFT BREAST - BENIGN Status post trigger finger release X 3 Family History Grandmother Family hx of colon cancer Family/Other Family history of diabetes mellitus Social History Smoking Status: Never smoker Second Hand Exposure: Yes; Hx Alcohol Use: No Hx Substance Use: No Preferred Language: Japanese Communication Ability: Effective Senior Gamemaster Required: No Beliefs That Will Affect Care: None Current Living Situation: Family Current Living Situation Comment: 17 YR OLD GRANDSON LIVES WITH PT. Feels Safe at Home: Yes Assistive Devices: Glasses Review of Systems Review of Systems: The patient denies chest pain, palpitations, shortness of breath, dyspnea on exertion, cough, lower extremity swelling, sore throat, feve rs, chills, sweats, diarrhea , constipation, abdominal pain, pelvic pain, blood in urine or stool, dysuria, urinary frequency or urgency, lightheadedness, dizziness, headache, memory loss, loss of consciousness, rash, abnormal bruising or bleeding, imbalance, focal weakness, numbness or tingling in arms or legs, generalized arthralgias or myalgias, neck pain, or night sweats. The review of systems is otherwise negative other than for that already noted above, and at least 10 systems have been reviewed. Physical Exam Physical Exam: The patient is awake, alert and oriented 3, well developed and well nourished, normocephalic and atraumatic, lying in bed and in no acute distress. HEENT--PERRL, EOMI, mucous membranes and oropharynx dry. Neck--supple. No JVD. No bruits. Thyroid normal, trachea midline, no adenopathy. Heart--normal S1 and S2. No murmurs, rubs or gallops. Lungs--clear bilaterally, no respiratory distress, no accessory muscle use. Abdomen--normal bowel sounds and soft. Mild left flank tenderness. Nondistended Extremities--no cyanosis or clubbing. No edema. Dermatologic--normal skin turgor, normal color, no abnormal lymph nodes, no rash. Neurologic--cranial nerves II through XII grossly intact. Rheumatologic--normal range of motion. Psychiatric--normal affect. Results & Data Results & Data ([facility]) Vital Signs (Past 12 Hours) Vital Signs Temp Pulse Pulse Resp BP BP Pulse Ox 06/24/21 02:37 61 14 177/79 H 97 06/24/21 02:20 99 06/24/21 02:14 62 18 207/83 H 81 L 06/24/21 01:22 98 06/24/21 00:50 97.7 F 80 18 229/100 H 99 Laboratory Results Laboratory Results WBC 11.63 K/uL (4.8-10.8) H 06/24/21 01:20 RBC 4.76 M/uL (4.2-5.4) 06/24/21 01:20 Hgb 14.2 g/dL (12.0-16.0) 06/24/21 01:20 Hct 42.0 % (37-47) 06/24/21 01:20 MCV 88.2 fL (80-100) 06/24/21 01:20 MCH 29.8 pg (25-34) 06/24/21 01:20 MCHC 33.8 g/dL (32-36) 06/24/21 01:20 RDW Std Deviation 41.7 fL (36.4-46.3) 06/24/21 01:20 RDW Coeff of Bridgette 12.9 % (11.5-14.5) 06/24/21 01:20 Plt Count 328 K/uL (130-400) 06/24/21 01:20 MPV 10.9 fL (7.4-10.4) H 06/24/21 01:20 Immature Gran % (Auto) 0.1 % 06/24/21 01:20 Neut % (Auto) 54.6 % 06/24/21 01:20 Lymph % (Auto) 36.5 % 06/24/21 01:20 [place] % (Auto) 7.0 % 06/24/21 01:20 Eos % (Auto) 1.5 % 06/24/21 01:20 Baso % (Auto) 0.3 % 06/24/21 01:20 Neut # (Auto) 6.36 K/uL (1.4-6.5) 06/24/21 01:20 Lymph # (Auto) 4.25 K/uL (1.2-3.4) H 06/24/21 01:20 [place] # (Auto) 0.81 K/uL (0.11-0.59) H 06/24/21 01:20 Eos # (Auto) 0.17 K/uL (0-0.5) 06/24/21 01:20 Baso # (Auto) 0.03 K/uL (0-0.2) 06/24/21 01:20 Immature Gran # (Auto) 0.01 K/uL (0.00-0.02) 06/24/21 01:20 Sodium 141 mmol/L (136-145) 06/24/21 01:20 Potassium 2.7 mmol/L (3.5-5.1) L 06/24/21 01:20 Chloride 105 mmol/L (98-107) 06/24/21 01:20 Carbon Dioxide 27 mmol/L (21-32) 06/24/21 01:20 Anion Gap 9.0 (3-11) 06/24/21 01:20 BUN 16 mg/dl (7-18) 06/24/21 01:20 Creatinine 0.99 mg/dl (0.6-1.2) 06/24/21 01:20 Est Cr Clr Drug Dosing Not Reportable 06/24/21 01:20 Est GFR ( Amer) 68.8 ml/min 06/24/21 01:20 Est GFR (Non-Af Amer) 59.4 ml/min 06/24/21 01:20 BUN/Creatinine Ratio 15.9 (10-20) 06/24/21 01:20 Glucose 169 mg/dl (70-99) H 06/24/21 01:20 Calcium 9.5 mg/dl (8.5-10.1) 06/24/21 01:20 Total Bilirubin 0.4 mg/dl (0.2-1) 06/24/21 01:20 AST 13 U/L (15-37) L 06/24/21 01:20 ALT 20 U/L (12-78) 06/24/21 01:20 Alkaline Phosphatase 97 U/L (45-117) 06/24/21 01:20 Total Protein 8.0 gm/dl (6.4-8.2) 06/24/21 01:20 Albumin 4.2 gm/dl (3.4-5.0) 06/24/21 01:20 Globulin 3.8 gm/dl (2.5-4.0) 06/24/21 01:20 Albumin/Globulin Ratio 1.1 (0.9-2) 06/24/21 01:20 Lipase 232 U/L (73-393) 06/24/21 01:20 Urine Color Yellow 06/24/21 02:00 Urine Appearance Clear (Clear) 06/24/21 02:00 Urine pH 8.5 (4.5-7.5) H 06/24/21 02:00 Ur Specific [place] 1.009 (1.000-1.030) 06/24/21 02:00 Urine Protein Trace (Negative) H 06/24/21 02:00 Urine Glucose (UA) 1+ (Negative) H 06/24/21 02:00 Urine Ketones Negative (Negative) 06/24/21 02:00 Urine Blood 2+ (Negative) H 06/24/21 02:00 Urine Nitrite Negative (Negative) 06/24/21 02:00 Urine Bilirubin Negative (Negative) 06/24/21 02:00 Urine Urobilinogen Negative (Negative) 06/24/21 02:00 Ur Leukocyte Esterase Negative (Negative) 06/24/21 02:00 Urine WBC (Auto) 0 /hpf (0-5) 06/24/21 02:00 Urine RBC (Auto) 10-30 /hpf (0-4) H 06/24/21 02:00 U Hyaline Cast (Auto) 0 /lpf (0-5) 06/24/21 02:00 U Epithel Cells (Auto) 10-20 /lpf (0-5) H 06/24/21 02:00 Urine Bacteria (Auto) Negative (Negative) 06/24/21 02:00 Diagnostic Findings [facility] Patient: NEFTALY TAY (Female) : 55 Status:A ER Date: 06/24/21 02:12 Room #: History: PAIN AT LEFT FLANK Slices: [id number] Priors: Tech: José White @ [phone] Exams: CT ABDOMEN & PELVIS Without Contrast Contrast: Accession Numbers: [id number] Referring Physician: TU MORALES Preliminary Findings Only See Final Report For Complete Findings CT ABDOMEN & PELVIS Without Contrast: There is a 7 mm stone in the distal left ureter with moderate upstream hydronephrosis. Small hiatal hernia. 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 Radiologist: Jose Martin MD Study ready at 02:17 and initial results transmitted at 02:34 *This report constitutes a preliminary interpretation only. Non-acute findings felt to be unrelated to the clinical presentation may not be discussed in this report. The study will be interpreted and a final report will be generated by the local Radiologist the following shift. To reach the hospital radiology department call [phone]. If a discrepancy is found between the preliminary and final interpretations of this study, please notify us via our Client Portal at [email or web address] under QA Exams. You can also fax this report with a description of the discrepancy, or include the final report, to our daytime fax number [phone]. If faxing, please indicate the severity of discrepancy using one of the following categories: [ ] 1 - Agree/Informational [ ] 2 - Unlikely to Affect Management [ ] 3 - Possible Eventual Change of Management [ ] 4 - Probable Immediate Change of Management For all other patient related information, please fax us at [phone]. [id number] Code Status & VTE Plan Code Status Full code VTE Prophylaxis Plan VTE Prophylaxis will be ordered: Yes PG Care Time/CCT Total # of Minutes Spent Total Time Spent with Patient: Total time spent is greater than 50% in coordination of care (as documented) at patient's floor/unit and/or counseling patient: Coding Level of Care Code 84497 Initial Inpt Care Lvl 3 Diagnoses Kidney stone on left side N20.0 Hydronephrosis of left kidney N13.30 Diabetes E11.9 Hypertension I10 Glaucoma H40.9
[2021-06-24] MEDS ORDERED: CIPROFLOXACIN / D5W 400 MG/200 ML BAG IV STA (03:23)
[2021-06-24] MEDS ORDERED: METOPROLOL TARTRATE 1 MG/ML VIAL IV PRN (03:23)
[2021-06-24] MEDS ORDERED: HYDROmorphone INJ 0.5 MG/0.5 ML SYR IV PRN ×2 (03:26)
[2021-06-24] MEDS: POTASSIUM CHLORIDE / WTR 10 MEQ/100 ML PLCT IV SCH ×2 (03:49→05:04)
--- NOTE | 2021-06-24 05:57 | Urology Consultation ---
Date of Consultation June 24, 2021 Assessment & Plan (1) Kidney stone on left side: Patient has been admitted on the hospitalist service. We recommend proceeding as follows: -Provide analgesics -Prior antiemetics -Provide hydration with IV fluids supplementing her potassium -Consider adding Flomax for expulsive therapy or kidney stone -Patient has been placed on antibiotics in form of Cipro. -We will keep the patient n.p.o. reevaluate her early in the morning to see if cystoscopic intervention is required. Additional recommendations be forthcoming based on her clinical course as it unfolds. Supervising Physician Co-Signing Physician Notes Discussed patient with ELLIOTT. Agree with plan. No indication to place stent at this time. Will monitor patients symptoms and reassess to determine if she can be discharged on metabolic stone therapy or possibly needs cystoscopy with stent placement. History of Present Illness Reason for Consultation: Nephrolithiasis History of Present Illness This is a 66-year-old female with no prior history of kidney stones. Patient says that last week she was having some on and off left flank pain that seemed to resolve on its own. She did not seek medical attention initially as this problem resolved. She does note however that last evening she developed severe left-sided flank pain that would not remit. She had associated nausea vomiting but did not have any fevers, shakes, chills. She did not note any palliative or provocative factors other than pain medicine that were administered in the emergency department. She does note the pain radiated from her left flank around to the front of her abdomen into her left groin. She denies any dysuria or hematuria. In the emergency department patient had labs and imaging which I independently reviewed. CT scan of the abdomen pelvis showed a 7 mm kidney stone in the distal left ureter with some noted hydronephrosis. Labs include a CBC her white blood cell count is 11.6. Her hemoglobin, hematocrit, and platelet count were all within normal range. Chemistry profile showed sodium was 141 and her BUN and creatinine were both normal. Her potassium is low at 2.7. A urinalysis was not indicative of infection. A Covid test was performed and was noted to be negative. The time of my interview the patient's pain was well controlled and she was in no distress. Allergies Allergy/AdvReac Type Severity Reaction Status Date / Time Cephalosporins Allergy Intermediate HIVES Verified 06/24/21 01:20 codeine Allergy Intermediate HIVES Verified 06/24/21 01:20 Penicillins Allergy Intermediate HIVES Verified 06/24/21 01:20 tramadol AdvReac Intermediate Unknown Verified 06/24/21 01:20 Home Medications Medication Instructions Recorded Confirmed Type calcium carbonate 600 mg calcium 600 mg PO QAM 06/26/18 06/24/21 History (1,500 mg) tablet (Calcium) cyanocobalamin (vitamin B-12) 1,000 mcg PO QAM 06/26/18 06/24/21 History 1,000 mcg tablet (Vitamin B-12) insulin detemir U-100 100 unit/mL 20 unit SUBCUT HS 06/26/18 06/24/21 History subcutaneous solution (Levemir U-100 Insulin) lisinopril 10 mg tablet 10 mg PO QAM 01/21/19 06/24/21 History timolol maleate 0.5 % eye drops 1 drp OPHTHALMIC (EYE) QAM 06/24/21 06/24/21 History travoprost 0.004 % eye drops 1 drp OPHTHALMIC (EYE) HS 06/24/21 06/24/21 History Patient History Medical History Asthma A CHILD Diabetes mellitus, type 2 IDDM Glaucoma Hypertension Surgical History History of bilateral tubal ligation History of breast biopsy LEFT BREAST - BENIGN History of cataract surgery BL History of tooth extraction Hx of lumpectomy LEFT BREAST - BENIGN Status post trigger finger release X 3 Family History Grandmother Family hx of colon cancer Family/Other Family history of diabetes mellitus Social History Smoking Status: Never smoker Second Hand Exposure: Yes; Hx Alcohol Use: No Hx Substance Use: No Preferred Language: Congolese Communication Ability: Effective School Bus Operator Required: No Beliefs That Will Affect Care: None Current Living Situation: Family Current Living Situation Comment: 17 YR OLD GRANDSON LIVES WITH PT. Feels Safe at Home: Yes Assistive Devices: Glasses Review of Systems Constitutional: no fever and no chills Eyes: no diplopia Ear, Nose, Mouth, Throat: no ear pain and no sore throat Respiratory: no cough and no dyspnea Cardiovascular: no chest pain Gastrointestinal: + abdominal pain, + nausea and + vomiting Genitourinary: + flank pain (Left-sided); no dysuria Musculoskeletal: + back pain (Left-sided flank pain) Integumentary: no rash Neurologic: no localized weakness Physical Exam Constitutional: well developed and well nourished; no acute distress Eyes: no conjunctival abnormality ENMT: Ears: no hearing impairment and no external ear abnormality Mouth: no oropharynx abnormality Neck: trachea midline Respiratory: normal respiratory effort, lungs clear to auscultation Cardiovascular: Rate/Rhythm: regular rate and regular rhythm Gastrointestinal (Abdomen): Abdomen is soft, nontender, nondistended. Bowel sounds are present Skin: no rashes, warm and dry Neurologic: moves all extremities Psychiatric: A+Ox3, euthymic affect Results & Data ([facility]) Vital Signs (Past 12 Hours) Vital Signs Temp Pulse Pulse Resp BP BP Pulse Ox 06/24/21 05:04 57 L 14 137/55 L 100 06/24/21 04:36 58 L 16 150/76 H 100 06/24/21 04:08 64 16 169/70 H 98 06/24/21 02:37 61 14 177/79 H 97 06/24/21 02:20 99 06/24/21 02:14 62 18 207/83 H 81 L 06/24/21 01:22 98 06/24/21 00:50 36.5 C 80 18 229/100 H 99 PG Care Time/CCT Total # of Minutes Spent Total Time Spent with Patient: Total time spent is greater than 50% in coordination of care (as documented) at patient's floor/unit and/or counseling patient: Coding Level of Care Code 27384 Inpt Consult Level 5 Diagnoses Kidney stone on left side N20.0
--- NOTE | 2021-06-24 08:29 | CT Scan Report ---
ABDOMEN AND PELVIS CT WITHOUT CONTRAST CT DOSE: 576.01 mGy.cm HISTORY: L flank pain TECHNIQUE: Multiaxial CT images of the abdomen and pelvis were performed without contrast. A dose lo wering technique was utilized adhering to the principles of ALARA. COMPARISON STUDY: None. FINDINGS: Healing right anterior sixth and seventh rib fractures. Old, healed left-sided anterior rib fractures. There is a small to moderate hiatus hernia. 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 The unenhanced liver, spleen, adrenal glands, and pancreas are unremarkabl e. No right renal stones identified. There is a 1.2 cm hypodense lesion within the upper pole of the right kidney. This is incompletely characterized on this noncontrast study but favors a cyst. There i s mild left perinephric edema. There is a punctate stone within the upper pole of the left kidney. Th ere is an obstructing 7 mm stone within the distal left ureter on image 343 resulting in moderate lef t hydroureteronephrosis. No retroperitoneal lymphadenopathy. Normal caliber abdominal aorta. The blad madan is decompressed but appears unremarkable. The uterus and adnexa are within normal limits. Subopti mal evaluation for bowel pathology due to the lack of intravenous and oral contrast. A few colonic di verticula. No evidence for acute diverticulitis. No definite bowel wall thickening or obstruction. No rmal appendix. IMPRESSION: 1. A 7 mm obstructing stone within the distal left ureter resulting in moderate left hydroureteroneph rosis. 2. Left-sided nephrolithiasis. 3. No definite bowel wall thickening or obstruction. 4. Healing right anterior sixth and seventh rib fractures. 5. Additional findings as described above. ACT 112: Negative or not required by law. Electronically signed by: Shamir Woods M.D. 06/24/2021 8:28 AM
[2021-06-24] MEDS: TAMSULOSIN HCL 0.4 MG CAP PO SCH (10:59)
[2021-06-24] MEDS ORDERED: fentaNYL citrate 100 MCG/2 ML VIAL ONE (11:10)
[2021-06-24] MEDS ORDERED: MIDAZOLAM HCL 1 MG/ML 2ML VIAL ONE (11:10)
[2021-06-24] MEDS ORDERED: PROPOFOL IV EMULSION 10 MG/ML 20 ML VIAL IV ONE (11:11)
[2021-06-24] MEDS ORDERED: LIDOCAINE 2% 2 ML VIAL/AMP(20MG/ML) INFIL ONE (11:11)
[2021-06-24] MEDS ORDERED: ONDANSETRON INJ 2 MG/ML 2 ML VIAL ONE (11:11)
[2021-06-24] MEDS ORDERED: ONDANSETRON INJ 2 MG/ML 2 ML VIAL IV PRN ×2 (11:45→12:09)
[2021-06-24] MEDS ORDERED: fentaNYL citrate 100 MCG/2 ML VIAL IV PRN (11:45)
[2021-06-24] MEDS ORDERED: ePHEDrine sulfate 50 MG/ML AMP IV PRN (11:45)
[2021-06-24] MEDS ORDERED: ATROPINE SULFATE 0.1 MG/ML 10ML SYR IV PRN (11:45)
[2021-06-24] MEDS ORDERED: GLUCAGON FOR INJ 1 MG VIAL IM PRN (12:00)
[2021-06-24] MEDS ORDERED: DEXTROSE 50% 50 ML SYRINGE IV PRN ×2 (12:00→12:09)
[2021-06-24] MEDS ORDERED: CARBOHYDRATES FOR HYPOGLYCEMIA PO PRN ×2 (12:00→12:09)
[2021-06-24] MEDS ORDERED: INSULIN ASPART 100 UNITS/ML 3 ML PEN SC SCH (12:00)
[2021-06-24] MEDS ORDERED: GLUCOSE 10 TABS/TUBE PO PRN ×2 (12:00→12:09)
[2021-06-24] MEDS ORDERED: GLUCOSE 40% GEL 15 GM TUBE PO PRN ×2 (12:00→12:09)
[2021-06-24] MEDS ORDERED: GLUCAGON FOR INJ 1 MG VIAL SQ PRN (12:09)
[2021-06-24] MEDS ORDERED: ACETAMINOPHEN 325 MG TAB PO PRN (12:09)
--- NOTE | 2021-06-24 12:17 | Anesthesiology Consultation ---
Date of Service June 24, 2021 Assessment & Plan (1) Encounter for pre-operative examination: Chart Review Chart Review: Acceptable Risk for Surgery Consults Requested none ASA ASA3 Proposed Anesthesia Anesthesia Type: General Risk / Benefits Reviewed With: PT / POA / Parent / Guardian, Accepts Plan and Informed Consent Obtained History Surgery Operation Date: 06/24/21 12:20 Proposed Procedures p Cystoscopy, Left Ureteroscopy, Laser Lithotripsy, Stent Placement - Kenji Tamayo MD Height/Weight Height: 4 ft 10 in Allergies Allergy/AdvReac Type Severity Reaction Status Date / Time Cephalosporins Allergy Intermediate HIVES Verified 06/24/21 01:20 codeine Allergy Intermediate HIVES Verified 06/24/21 01:20 Penicillins Allergy Intermediate HIVES Verified 06/24/21 01:20 tramadol AdvReac Intermediate Unknown Verified 06/24/21 01:20 Medications Home Medications Medication Instructions Recorded Confirmed Last Taken calcium carbonate 600 mg calcium 600 mg PO QAM 06/26/18 06/24/21 06/23/21 (1,500 mg) tablet (Calcium) cyanocobalamin (vitamin B-12) 1,000 mcg PO QAM 06/26/18 06/24/21 06/23/21 1,000 mcg tablet (Vitamin B-12) insulin detemir U-100 100 unit/mL 20 unit SUBCUT HS 06/26/18 06/24/21 06/23/21 subcutaneous solution (Levemir U-100 Insulin) lisinopril 10 mg tablet 10 mg PO QAM 01/21/19 06/24/21 06/23/21 timolol maleate 0.5 % eye drops 1 drp OPHTHALMIC (EYE) QAM 06/24/21 06/24/21 06/23/21 travoprost 0.004 % eye drops 1 drp OPHTHALMIC (EYE) 06/24/21 06/24/21 Unknown Active Medications Generic Name Dose Route Start Last Admin Trade Name Freq PRN Reason Stop Dose Admin Metoprolol Tartrate 5 mg 06/24/21 03:23 06/24/21 04:13 Metoprolol Tartrate 1 Mg/Ml Vial IV 07/24/21 03:59 5 mg Q4 PRN Administration Hypertension Tamsulosin HCl 0.4 mg 06/24/21 10:00 06/24/21 10:59 Tamsulosin Hcl 0.4 Mg Cap PO 07/24/21 09:59 0.4 mg QAM RICKIE Administration NPO Date Last Intake of Fluids: 06/23/21 Time Last Intake of Fluids: 20:00 Date Last Intake of Solids: 06/23/21 Time Last Intake of Solids: 17:30 Past Medical History Medical History Asthma A CHILD Diabetes mellitus, type 2 IDDM Glaucoma Hypertension Exercise / Class Metabolic Activity II 4-5 Yardwork/Stairs/Walk up hill Past Family History Family History Grandmother Family hx of colon cancer Family/Other Family history of diabetes mellitus Past Surgical History Surgical History History of bilateral tubal ligation History of breast biopsy LEFT BREAST - BENIGN History of cataract surgery BL History of tooth extraction Hx of lumpectomy LEFT BREAST - BENIGN Status post trigger finger release X 3 Past Anesthesia History No Hx of Anesthesia Complications and No Family Hx of Anesthesia Complications History of PONV No Hx of PONV and No Hx of Motion Sickness Social History Smoking Status: Never smoker Hx Alcohol Use: No Hx Substance Use: No substance use type: does not use Physical Exam Vital Signs Last Vital Signs Temp 98.4 F 06/24/21 11:41 Pulse 56 L 06/24/21 11:41 Resp 56 H 06/24/21 11:41 BP 205/80 H 06/24/21 11:41 Pulse Ox 99 06/24/21 11:41 ENMT Mouth: no dentition abnormality Thyromental Distance: > or= 3.5 Finger Breadths Mallampati Class: III Neck normal visual inspection Respiratory normal respiratory effort Auscultation: lungs clear to auscultation bilaterally Cardiovascular Rate/Rhythm: regular rate and regular rhythm Testing Laboratory Results 06/24/21 01:20 06/24/21 01:20 Urine Color Yellow 06/24/21 02:00 Urine Appearance Clear (Clear) 06/24/21 02:00 Urine pH 8.5 (4.5-7.5) H 06/24/21 02:00 Ur Specific [place] 1.009 (1.000-1.030) 06/24/21 02:00 Urine Protein Trace (Negative) H 06/24/21 02:00 Urine Glucose (UA) 1+ (Negative) H 06/24/21 02:00 Urine Ketones Negative (Negative) 06/24/21 02:00 Urine Nitrite Negative (Negative) 06/24/21 02:00 Ur Leukocyte Esterase Negative (Negative) 06/24/21 02:00 Urine WBC (Auto) 0 /hpf (0-5) 06/24/21 02:00 Urine RBC (Auto) 10-30 /hpf (0-4) H 06/24/21 02:00 U Hyaline Cast (Auto) 0 /lpf (0-5) 06/24/21 02:00 U Epithel Cells (Auto) 10-20 /lpf (0-5) H 06/24/21 02:00 Urine Bacteria (Auto) Negative (Negative) 06/24/21 02:00
[2021-06-24] MEDS ORDERED: SUCCINYLCHOLINE CHLORIDE 20 MG/ML 10 ML VIAL IV ONE ×2 (12:40→12:50)
[2021-06-24] MEDS ORDERED: DIATRIZOATE MEGLUMINE 30% 100ML VIAL INSTIL ONE (13:09)
--- NOTE | 2021-06-24 13:17 | Operative Report ---
[facility] Post Operative Report Pre & Post Diagnosis Operation Date: 06/24/21 12:20 Pre-Op Diagnosis: Left Ureteral Stone, Left Hydronephrosis Post-Op Diagnosis: Left Ureteral Stone, Left Hydronephrosis I identified the patient and participated in the time-out.: Yes Procedure Operation Date: 06/24/21 12:20 Actual Procedures p Cystoscopy, Left Ureteroscopy, Left Retrograde Pyelogram, Left Ureteral Stent Placement(Left) - Kenji Tamayo MD Surgeon Kenji Tamayo MD Software Sales Representative none Estimated Blood Loss 0 Findings See Below tight left ureteral orifice and distal ureter, unable to bypass with gentle pressure from semirigid ureteroscope. Some superficial mucosal tearing appreciated so elected to place a stent to allow passive dilation. Specimens none Drains 6 Fr x 24 cm double-J ureteral stent in left ureter. Anesthesia Type General Complications none Disposition Disposition: Recovery Room Indications This is a 66 yo female who presented to the ED with flank pain and was found to have an 8mm distal left ureteral stone. Due to low likelihood of spontaneous passage, and ongoing pain and nausea, she is being brought to the OR for stone removal. Description of Procedure The patient was identified in the holding area and informed consent was confirmed. They were marked on the left side, then were taken to the operating room where general anesthesia was initiated. They were placed in the dorsal lithotomy position with all pressure points appropriately padded. They were prepped and draped in the usual sterile fashion and a preoperative timeout was performed. A well-lubricated cystoscope was inserted per urethra and panendoscopy was performed. The urethra was normal with no mucosal abnormalities. The bladder was of normal size, bilateral ureteral orifices were in orthotopic position. They appeared diminutive in size. The left ureteral orifice was identified and cannulated with a 5 [place]bourgish open- ended catheter. A retrograde pyelogram was performed demonstrating a very narrow distal ureter, with proximal dilation. There were shadows suspicious for the stone. A 0.038" ZIPwire was advanced to the level of the kidney under fluoroscopic guidance. The semirigid ureteroscope was inserted and gently advanced into the distal ureter. There was not much space to advance the scope, so a second ZIPwire was used to attempt to prop open the ureter. Even with this in place, the ureteroscope could only be advanced approximatley 1 cm. After attempting slightly different angles, some of the ureteral mucosa was starting to get roughed up and the scope was not making any progress. I considered ureteral dilation, but since there was already some evidence of early mucosal tearing, elected to place a stent to allow for passive dilation. A 6 Luxembourgish x 24 centimeter double-J ureteral stent was advanced. When the wire was removed, the proximal curl was visualized in the kidney with x-ray, and the distal curl visualized in the bladder with the cystoscope. At this point the bladder was drained and all instrumentation was removed. The patient was then awakened from anesthesia and was brought to the PACU in stable condition. I attest to the content of the Intraoperative Record and any orders documented therein. Any exceptions are noted below.
--- NOTE | 2021-06-24 13:33 | Fluoroscopy Report ---
FL retrograde includes kub CLINICAL HISTORY: RETROGRADE AND STENT PLACEMENT TECHNIQUE: 6 views were obtained with the C-arm in the OR with the above procedure. Total fluoroscopy time was 11.6 seconds. Total skin dose was 2.62 mGy. Comparison: None available at the time of this dictation. FINDINGS/IMPRESSION: Multiple intraoperative images of retrograde cystoscopy with stent placement. Please correlate with intraoperative fluoroscopy and operative report. ACT 112: Negative or not required by law. Electronically signed by: Tra Prater M.D. 06/24/2021 1:31 PM
--- NOTE | 2021-06-24 14:11 | Anesthesiology Progress Note ---
Date of Service June 24, 2021 Anesthesia Post Procedure Vital Signs Vital Signs: Temp Pulse Pulse Pulse Resp BP BP 06/24/21 14:05 97.2 F L 06/24/21 13:55 61 16 148/62 H 06/24/21 13:45 62 16 147/66 H 06/24/21 13:35 64 16 149/58 H 06/24/21 13:25 97.0 F L 59 L 59 L 16 152/64 H 06/24/21 11:41 98.4 F 56 L 56 H 205/80 H 06/24/21 10:35 98.2 F 56 L 18 146/86 H 06/24/21 08:00 55 L 20 124/63 06/24/21 06:03 60 14 162/60 H 06/24/21 05:04 57 L 14 137/55 L 06/24/21 04:36 58 L 16 150/76 H 06/24/21 04:08 64 16 169/70 H 06/24/21 02:37 61 14 177/79 H 06/24/21 02:20 06/24/21 02:14 62 18 207/83 H 06/24/21 01:22 06/24/21 00:50 97.7 F 80 18 229/100 H Pulse Ox 06/24/21 14:05 06/24/21 13:55 94 06/24/21 13:45 94 06/24/21 13:35 98 06/24/21 13:25 97 06/24/21 11:41 99 06/24/21 10:35 96 06/24/21 08:00 100 06/24/21 06:03 98 06/24/21 05:04 100 06/24/21 04:36 100 06/24/21 04:08 98 06/24/21 02:37 97 06/24/21 02:20 99 06/24/21 02:14 81 L 06/24/21 01:22 98 06/24/21 00:50 99 Pain Intensity Left Flank: Pain Intensity: 4 Transfer of Care Handoff Completed per policy Notes Mental Status: alert / awake / arousable and participated in evaluation Patient Amnestic to Procedure: Yes Nausea / Vomiting: adequately controlled Pain: adequately controlled Airway Patency, RR, SpO2: stable & adequate BP & HR: stable & adequate Hydration State: stable & adequate Anesthetic Complications: no major complications apparent and Pt Satisfied with anesthetic care
[2021-06-24] MEDS: PATIENT'S HEIGHT AND/OR WEIGHT NEEDED SCH ×3 (15:58→17:44)
[2021-06-24] MEDS: NSS + 20MEQ KCL 20 MEQ/1,000 ML BAG IV SCH ×2 (16:09→19:03)
--- NOTE | 2021-06-24 18:14 | Electrocardiogram Report ---
Test Reason : Blood Pressure : / mmHG Vent. Rate : 072 BPM Atrial Rate : 068 BPM P-R Int : 000 ms QRS Dur : 064 ms QT Int : 396 ms P-R-T Axes : 000 052 081 degrees QTc Int : 433 ms Poor data quality, interpretation may be adversely affected Probably sinus rhythm Nonspecific T wave abnormality Abnormal ECG Confirmed by Filipe Raza ([id number]) on 06/24/2021 6:14:00 PM Referred By: REFERRED SELF Confirmed By:Ben Raza
[2021-06-24] MEDS: CIPROFLOXACIN / D5W 400 MG/200 ML BAG IV SCH (18:37)
[2021-06-24] MEDS: INSULIN ASPART 100 UNITS/ML 3 ML PEN SC SCH ×2 (18:44→21:51)
[2021-06-24] MEDS ORDERED: TRAVOPROST Z 0.004% OPH SOLN 2.5 ML BTL OP SCH (21:00)
[2021-06-24] MEDS ORDERED: INSULIN DETEMIR FLEXPEN/FLEX TOUCH 100 UNITS/ML 3ML SC SCH (21:00)
[2021-06-24] MEDS ORDERED: INSULIN DETEMIR 100 UNIT/ML SQ SCH (21:00)
[2021-06-25] MEDS: NSS + 20MEQ KCL 20 MEQ/1,000 ML BAG IV SCH ×2 (01:57→12:02)
[2021-06-25] MEDS: CIPROFLOXACIN / D5W 400 MG/200 ML BAG IV SCH (05:56)
[2021-06-25 06:44] LABS: Basophils # (auto) 0.03 K/uL (0-0.2); Basophils % (auto) 0.4 %; Eosinophils # (auto) 0.06 K/uL (0-0.5); Eosinophils % (auto) 0.9 %; Hematocrit (blood only) 35.3 % (37-47); Hemoglobin 11.5 g/dL (12.0-16.0); Immature Granulocytes # (auto) 0.01 K/uL (0.00-0.02); Immature Granulocytes % (auto) 0.1 %; Lymphocytes # (auto) 2.48 K/uL (1.2-3.4); Lymphocytes % (auto) 36.8 %; Mean Corpuscular Hemoglobin 29.5 pg (25-34); Mean Corpuscular Hgb Conc 32.6 g/dL (32-36); Mean Corpuscular Volume 90.5 fL (80-100); Mean Platelet Volume 11.2 fL (7.4-10.4); Monocytes # (auto) 0.67 K/uL (0.11-0.59); Monocytes % (auto) 9.9 %; Neutrophils # (auto) 3.49 K/uL (1.4-6.5); Neutrophils % (auto) 51.9 %; Platelet Count 248 K/uL (130-400); RDW Coefficient of Variation 13.4 % (11.5-14.5); RDW Standard Deviation 44.4 fL (36.4-46.3); White Blood Count 6.74 K/uL (4.8-10.8)
[2021-06-25 07:20] LABS: Albumin Globulin Ratio 0.9 (0.9-2); Albumin Level 2.6 gm/dl (3.4-5.0); BUN Creatinine Ratio 16.4 (10-20); Bilirubin,Total 0.7 mg/dl (0.2-1); Calcium 8.1 mg/dl (8.5-10.1); Creatinine Clr Calc Pharmacy 54.6 ml/min; Est GFR (Non-African American) 76.8 ml/min; Potassium 3.7 mmol/L (3.5-5.1); Total Protein 5.6 gm/dl (6.4-8.2)
[2021-06-25 07:59] LABS: Estimated Average Glucose 171 mg/dl; Hemoglobin A1C 7.6 % (4.5-5.6)
--- NOTE | 2021-06-25 08:15 | Discharge Summary ---
Date of Service June 25, 2021 Admission HPI Per Admitting Provider The patient is a 66-year-old female with a past medical history including diabetes mellitus, facial cellulitis, daysi B12 deficiency, hypertension and glaucoma. She has not had any previous episodes of kidney stones, though she has 2 sons that do. She presents to the emergency department symptoms as noted above. Imaging in the emergency department, CT scan abdomen pelvis without contrast: 7 mm distal left ureteral stone with moderate left hydronephrosis. L5-S1 bilateral foraminal stenosis The patient received from the ED the following Toradol 15 mg IV x1, morphine sulfate 4 mg IV x2, and normal saline 500 mils Principal Diagnosis Left ureteral stone, left hydronephrosis Discharge Exam GENERAL: WD/WN. NAD. CHEST/LUNGS: CTAB A/P. No crackles, wheezes, rales, rhonchi. HEART: RRR. No m/g/r. No carotid bruits. ABDOMEN: NT/ND, soft. BS+ x4 SKIN: Warm and dry. No rashes or lesions. PSYCHIATRIC: A&Ox3. Euthymic affect, no SI, no pressured speech, no hallucinations Discharge Data Allergies Allergy/AdvReac Type Severity Reaction Status Date / Time Cephalosporins Allergy Intermediate HIVES Verified 06/24/21 01:20 codeine Allergy Intermediate HIVES Verified 06/24/21 01:20 Penicillins Allergy Intermediate HIVES Verified 06/24/21 01:20 tramadol AdvReac Intermediate Unknown Verified 06/24/21 01:20 Consultations 06/24/21 03:15 ED Decision to Admit Stat 06/24/21 06:09 Consult Urology Routine Procedures Performed Operation Date: 06/24/21 12:20 Actual Procedures p Cystoscopy, Left Ureteroscopy, Left Retrograde Pyelogram, Left Ureteral Stent Placement(Left) - Kenji Tamayo MD Ordered Studies 06/24/21 FL retrograde includes kub Routine 06/24/21 00:58 CT abd pelvis wo con Urgent Hospital Course (1) Hypertension: 66yo F with left-sided ureteral stone & associated moderate hydronephrosis. Left kidney stone with hydronephrosis: - Uro consulted -- stent placed 06/24, patient tolerated procedure well - Pain control & antiemetics prn -- pain well controlled with Tylenol per patient, continue prn at home - IVF w/ Potassium while admitted - Flomax added per Uro prior to procedure, discontinue at discharge - Received empiric Cipro but no signs of infection, will be discontinued at discharge Diabetes: - Levemir 20 units SQ HS -- continue - Accu-Cheks before meals and at bedtime with NovoLog coverage per scale Hypertension: - Held lisinopril - Restarted after procedure Glaucoma: - Continue usual eyedrops timolol maleate and travoprost Dispo: Home, self-care, f/u with Urology (2) Diabetes: (3) Kidney stone on left side: (4) Hydronephrosis of left kidney: Total Time Total Time Spent Total Time Spent (In Minutes): <30 Discharge Plan Discharge Items Patient Disposition: Home - Self-Care Reason For Visit: LEFT URETERAL STONE,LEFT HYDRONEPHROSIS Discharge Diagnosis: Left ureteral stone, left hydronephrosis Activity: Per Instructions section Non-emergency contact: Primary Care Provider and Urologist Call non-emergency contact if: your symptoms worsen Follow-up/Referrals: Kenji Tamayo MD [Physician] - Gurdeep Jensen MD [Primary Care Provider] - Diet: Carb Consistent or DM2 Addtl Attending Provider Instructions: You were admitted to [facility] due to flank pain, nausea, vomiting. You were found to have a left ureteral stone, which was causing an obstruction and swelling of your left kidney. As such, urology evaluated you and determined you needed a stent to help pass the stone. You had this procedure done on 06/24, which you tolerated well. You will be discharged with plans to follow-up with urology as below. Continue to take Flomax 0.4mg daily. Addtl Artist Relationship Manager Provider Instructions: The surgery you had was ureteroscopy and stent placement. You have a ureteral stent in place. This allows urine to drain from the kidney down past the stone to the bladder. As long as the stent is in place, you may see some blood in the urine. You may have pain in your side when you urinate. The ureter was too tight to safely remove the stone today. Having the stent in place will allow the ureter to dilate and enable us to treat it in a couple weeks. We will have you come to the urology office to discuss and coordinate next steps in stone management. When to call [facility] Urology at [phone]: Fever of 101F or higher Heavy bleeding Pain that is not controlled with medicine Uncontrolled vomiting Problems urinating or inability to urinate Pending Studies at Discharge: No Stand-Alone Forms: [facility], Smoking Cessation Medications and DC Order Prescriptions: New tamsulosin 0.4 mg Capsule 0.4 mg PO QAM 14 Days Qty: 14 RF: 0 Continued lisinopril 10 mg Tablet 10 mg PO QAM RF: 0 cyanocobalamin (vitamin B-12) [Vitamin B-12] 1,000 mcg Tablet 1,000 mcg PO QAM RF: 0 calcium carbonate [Calcium 600] 600 mg calcium (1,500 mg) Tablet 600 mg PO QAM RF: 0 Levemir U-100 Insulin 100 unit/mL Solution 20 unit SUBCUT HS RF: 0 travoprost 0.004 % drops 1 drp ophthalmic (eye) HS RF: 0 timolol maleate 0.5 % drops 1 drp ophthalmic (eye) QAM RF: 0 Discharge Orders: Discharge Order (Routine); Ordered 06/25/21 Ordered By: Chacho Gunderson/Other Patient Handouts: Preventing Kidney Stones Admission Data Admit Date/Time: 06/24/21 03:17 Attending Provider: Michael Morley Admit Provider: Ronald Rowland Primary Care Provider: Gurdeep Jensen Other Providers: Ronald Rowland ; Henrik Benítez. Other Interventions: Discharge Summary Assessment (RN) Last Done: 06/25/21 13:40 Supervising Physician Co-Signing Physician Notes I personally examined the patient and verified all cheng points of history and exam, discussed case, and agree with decision making with Dr Salgado Feeling better. Pain good. Nausea gone. Laughing, wants to go home. Vitals, in general she is awake and alert pleasant no distress. HEENT normocephalic atraumatic mucous membranes moist. Breathing unlabored no accessory muscle use good effort. Skin shows no rashes no pallor or icterus. Neuro without focal deficits. Ureterolithiasis/hydronephrosisnow status post stentingstable for home. Outpatient urology follow-up Otherwise as above Resident Activity Tracking Resident Involvement: Resident Care Provided Care Provided: Adult [facility] Medicine
[2021-06-25] MEDS ORDERED: CYANOCOBALAMIN 500 MCG TABLET (VITAMIN B-12) PO SCH (09:00)
[2021-06-25] MEDS ORDERED: CALCIUM CARBONATE 1250MG TAB PO SCH (09:00)
[2021-06-25] MEDS ORDERED: lisinopril 10 MG TAB PO SCH (09:00)
[2021-06-25] MEDS ORDERED: TIMOLOL MALEATE 0.5% OP SOLN 5 ML BTL OP SCH ×2 (09:00)
--- NOTE | 2021-06-25 09:57 | Urology Progress Note ---
Date of Service June 25, 2021 Assessment & Plan (1) Kidney stone on left side: Plan: Overall, Jazmine appears to be doing well. Her pain and nausea have improved substantially. We reviewed the results of surgery yesterday. Specifically we reviewed that the stone is still in place and will require further treatment. We will arrange office follow-up in the upcoming week to coordinate stone treatment. We reviewed symptoms she may have with the stent in place (hematuria, flank pain with voiding, stent pain) From the urology perspective she is appropriate for discharge home today. Please call with any questions or concerns. Admission and Anticipated Discharge Date Admission Date: June 24, 2021 Subjective She reports that her pain and nausea are both significantly improved. A little bit of left flank pain overnight, but responded well to Tylenol. Denies any hematuria. Review of Systems Gastrointestinal: No nausea or vomiting Genitourinary: No hematuria Physical Exam Constitutional: Resting comfortably in bed, no acute distress Results & Data ([facility]) Vital Signs (Past 12 Hours) Vital Signs Temp Pulse Resp BP Pulse Ox 06/25/21 07:05 36.8 C 64 16 152/73 H 92 06/25/21 04:48 36.9 C 64 16 120/72 93 06/24/21 23:31 36.9 C 87 18 118/65 92 PG Care Time/CCT Total # of Minutes Spent Total Time Spent with Patient: Total time spent is greater than 50% in coordination of care (as documented) at patient's floor/unit and/or counseling patient: Coding Level of Care Code 41477 Subseq Hosp Care Lvl 2 Diagnoses Kidney stone on left side N20.0
[2021-06-25] MEDS: INSULIN ASPART 100 UNITS/ML 3 ML PEN SC SCH ×2 (10:03→13:36)
[2021-06-25] MEDS: TAMSULOSIN HCL 0.4 MG CAP PO SCH (10:05)
--- NOTE | 2021-06-25 18:19 | Billing Data ---
Date of Service June 25, 2021 Coding Level of Care Code D/C DAY MANAGEMENT <30 MINS
[2021-06-27 12:30] LABS: iSTAT Potassium 4.2 mmol/L (3.3-5.0)
[2021-06-27 12:31] LABS: iSTAT Creatinine 0.7 mg/dl (0.6-1.3); iSTAT Hemoglobin 13.9 g/dl (12.0-16.0); iSTAT Ionized Calcium 1.17 mmol/l (1.12-1.32)
== END 2021-06-25 14:03 | disposition home or self-care (01) ==
LOC: ED 00:46 → SUATTDRO 03:17 → 3E 03:17 → INTOOBSV 03:17 → 3E 10:35

== ENCOUNTER 2023-07-04 00:12 | Observation (INO) ==
[2023-07-04 01:24] LABS: Basophils # (auto) 0.05 K/uL (0.00-0.20); Basophils % (auto) 0.5 %; Eosinophils # (auto) 0.27 K/uL (0.00-0.50); Eosinophils % (auto) 2.7 %; Hemoglobin 13.6 g/dl (12.0-16.0); Immature Granulocytes # (auto) 0.02 K/uL (0.01-0.20); Immature Granulocytes % (auto) 0.2 %; Lymphocytes # (auto) 2.98 K/uL (1.20-3.40); Lymphocytes % (auto) 29.5 %; Mean Corpuscular Hemoglobin 29.7 pg (25.0-34.0); Mean Corpuscular Volume 87.3 fL (80.0-100.0); Mean Platelet Volume 11.4 fL (9.4-12.4); Monocytes # (auto) 0.75 K/uL (0.11-0.59); Monocytes % (auto) 7.4 %; Neutrophils # (auto) 6.02 K/uL (1.40-6.50); Neutrophils % (auto) 59.7 %; Platelet Count 295 K/uL (130-400); RDW Coefficient of Variation 13.1 % (11.5-14.5); RDW Standard Deviation 42.1 fL (36.4-46.3); Red Blood Count 4.58 M/uL (4.20-5.40); White Blood Count 10.09 K/ul (4.8-10.8)
[2023-07-04 01:27] LABS: Appearance Urine Clear (Clear); Color Urine Orange; Specific Gravity Urine 1.014 (1.000-1.030)
[2023-07-04 01:35] LABS: Amorphous Sediment Urine Present (None Prsent); Bacteria Urine Negative (Negative); Hyaline Casts Urine 0-5 /lpf (0-5); WBC Urine 0-5 /hpf (0-5)
[2023-07-04 01:39] LABS: Albumin Globulin Ratio 1.5 (0.9-2); Albumin Level 4.4 gm/dl (3.4-5.0); Bilirubin,Total 0.7 mg/dl (0.2-1.0); Calcium 9.4 mg/dl (8.6-10.3); Creatinine Clr Calc Pharmacy 49.9 ml/min; Est GFR (African American) 81.6 ml/min; Est GFR (Non-African American) 70.4 ml/min; Globulin 2.9 gm/dl (2.5-4.0); Potassium 3.6 mmol/L (3.5-5.1); Total Protein 7.3 gm/dl (6.0-8.3)
[2023-07-04] MEDS ORDERED: KETOROLAC TROMETHAMINE 15 MG/ML VIAL IV STA (02:02)
[2023-07-04] MEDS ORDERED: ONDANSETRON INJ 2 MG/ML 2 ML VIAL IV STA (02:02)
[2023-07-04] MEDS ORDERED: SODIUM CHLORIDE 0.9% 1,000 ML IV SCH (02:15)
--- NOTE | 2023-07-04 03:04 | Emergency Department Note ---
Impression & Plan Calculus of distal left ureter ED Provider Note CHIEF COMPLAINT: Abdominal pain, frequent urination HISTORY OF PRESENTING ILLNESS: This 68-year-old female patient presents to the emergency department for evaluation of severe lower abdominal pain that radiates into her back. Symptoms started this afternoon. She was recently treated for UTI and finished her antibiotics 3 days ago. The patient states that she is having frequent urination and looser stools from the antibiotics as well. Has been taking [id number] Azo and antidiarrheal medication without improvement. She does have a history of kidney stones and the symptoms feel similar. Has had nausea and vomiting with the pain as well. No fevers. Denies chest pain or SOB. REVIEW OF SYSTEMS: See HPI for pertinent positives and pertinent negatives. ALLERGIES: PCN, cephalosporins, codeine, tramadol, morphine MEDICATIONS: See below PAST MEDICAL HISTORY: See below PHYSICAL EXAM: VITALS: Vitals are noted on the nurse's note and reviewed by myself. GENERAL: Non toxic, no acute distress, non-diaphoretic. SKIN: Capillary refill <2 sec. EYES: PERRLA. EOMI. Conjunctivae without injection, sclerae without icterus. NOSE: Patent without discharge. MOUTH: Mucous membranes moist. Uvula midline. Airway patent. NECK: Supple without nuchal rigidity. HEART: Regular rate and rhythm without murmurs gallops or rubs. LUNGS: Clear to auscultation bilaterally without wheezes, rales or rhonchi. No retractions or accessory muscle use. ABDOMEN: Positive bowel sounds x 4. Normal tympanic percussion. Soft, tender to palpation in the left flank. No masses or organomegaly. Mild left-sided CVA tenderness. Natarajan sign negative. No guarding or rebound tenderness. No focal RLQ or LLQ tenderness. MUSCULOSKELETAL: No gross musculoskeletal defects. NEURO: Patient was alert and oriented. No focal neurological deficits. DIFFERENTIAL DIAGNOSIS: Differential diagnosis includes hepatitis, pancreatitis, cholecystitis, cholelithiasis, appendicitis, kidney stone, pyelonephritis, UTI, gastritis, gastroenteritis, mesenteric adenitis, obstruction, constipation, hernia, abdominal abscess, perforation, diverticulitis, IBD, ischemic colitis, abdominal aortic aneurysm, , ectopic , ovarian cyst, ovarian torsion, acute salpingitis, or others. ED COURSE AND MEDICAL DECISION MAKING: MONITOR: Continuous model set artist: Order was placed for continuous model set artist. Patient was placed on the model set artist and continuous pulse ox. Patient was noted to be in normal sinus rhythm at an initial rate of 74 bpm per my interpretation. MEDICATIONS GIVEN: 1 L normal saline solution bolus. Toradol 15 mg IV, Zofran 4 mg IV, fentanyl 50 mcg IV x2, fentanyl 25 mcg IV, Reglan 10 mg IV. Flomax 0.4 mg p.o. INTERPRETATION OF LABS: I interpreted the labs with full lab results as below in the lab section of this note. CBC without leukocytosis, anemia, or thrombocytopenia. Glucose 180, but CMP otherwise normal. Lipase mildly elevated at 106. Urinalysis with 10-30 red blood cells, but no evidence for infection. INTERPRETATION OF IMAGING: Imaging studies were interpreted by myself and read by radiology as per the imaging section of this note. CT scan of the abdomen pelvis without contrast shows an obstructive 4 x 3 x 3 mm calculus within the left distal ureter adjacent to the left ureterovesicular junction with upstream moderate left renal hydronephrosis with perinephritic and periureteral stranding. There is also a nonobstructive left renal calculi, the largest within the inferior pole of the left kidney measuring up to 3 mm. CONSULTATIONS: On-call hospitalist MDM SUMMARY: I examined the patient. An IV lock was placed and labs were drawn. Due to the patient's medication allergies, we started with fentanyl for pain control. The patient did well with the fentanyl for pain control, but did become hypoxic right after receiving the medication with improvement of her pulse ox after the administration of medications. Therefore, the patient was placed on 2 L of oxygen by nasal cannula since she required multiple doses of pain medication while in the emergency department. The patient's laboratory studies as above without significant abnormalities. CT scan showed a 4 x 3 x 3 mm kidney stone with hydronephrosis and perinephritic and periureteral stranding. The patient was observed in the emergency department for multiple hours with multiple doses of pain medication, but continued symptoms. Therefore, we feel the patient requires admission for further management of her symptoms. The patient was independently evaluated by Dr. Allen, who agrees with my assessment and treatment plan. I spoke with the on-call hospitalist who agreed to admit the patient for further evaluation and treatment. Please refer to their dictation for further details. The patient's care was transferred in stable condition. DIAGNOSIS: Kidney stone Past Med/Surg History Medical History Glaucoma Hydronephrosis of left kidney Kidney stone on left side Hypertension Encounter for pre-operative examination Asthma A CHILD Diabetes mellitus, type 2 IDDM Surgical History History of cystoscopy History of cataract surgery BL Status post trigger finger release X 3 History of bilateral tubal ligation Hx of lumpectomy LEFT BREAST - BENIGN History of breast biopsy LEFT BREAST - BENIGN History of tooth extraction Family History Grandmother Family hx of colon cancer Family/Other Family history of diabetes mellitus Other No family history of adverse response to anesthesia Social History Smoking Status: Never smoker Second Hand Exposure: No; Do You Dip or Chew Tobacco: No; Hx Alcohol Use: No Hx Substance Use: No Preferred Language: Cook Islander Communication Ability: Effective Sample Steamer Required: No Beliefs That Will Affect Care: None Current Living Situation: Alone and Family Current Living Situation Comment: 2 grandsons and 1 son. Other Information That Helps Us Care for You: No Feels Safe at Home: Yes Safety Concerns: Feels Safe At This Time Assistive Devices: None Allergies Allergies Allergy/AdvReac Type Severity Reaction Status Date / Time Penicillins Allergy Severe Anaphylaxis Verified 07/04/23 02:04 Cephalosporins Allergy Intermediate HIVES Verified 07/04/23 02:04 codeine Allergy Intermediate HIVES Verified 07/04/23 02:04 tramadol Allergy Intermediate severe Verified 07/04/23 02:04 migraines morphine AdvReac Intermediate severe Verified 07/04/23 02:04 headache and nausea Home Meds Home Medications Medication Instructions Recorded Confirmed cyanocobalamin (vitamin B-12) 1,000 mcg PO QAM 06/26/18 07/04/23 1,000 mcg tablet (Vitamin B-12) insulin detemir U-100 100 unit/mL 20 unit subcut HS PRN IF NEEDED 06/26/18 07/04/23 subcutaneous solution (Levemir PER PT. U-100 Insulin) lisinopril 10 mg tablet 10 mg PO QAM 01/21/19 07/04/23 timolol maleate 0.5 % eye drops 1 drp ophthalmic (eye) QAM 06/24/21 07/04/23 travoprost 0.004 % eye drops 1 drp ophthalmic (eye) HS 06/24/21 07/04/23 ginkgo biloba 40 mg tablet 40 mg PO QAM 07/01/21 07/04/23 pravastatin 40 mg tablet 40 mg PO HS 07/13/21 07/04/23 cholecalciferol (vitamin D3) 25 25 mcg PO DAILY 07/04/23 07/04/23 mcg (1,000 unit) capsule (Vitamin D3) tirzepatide 2.5 mg/0.5 mL 2.5 mg subcut WK 07/04/23 07/04/23 subcutaneous pen injector (Shahram) zinc gluconate 50 mg tablet 50 mg PO DAILY 07/04/23 07/04/23 Results & Data (ED) Vital Signs Vital Signs - 24 hr 07/04/23 00:27 07/04/23 04:03 07/04/23 04:03 Temperature 36 C L Temperature Source Temporal Artery Scan Pulse Rate 79 77 79 Pulse Rate [Apical] Pulse Rate from SpO2 Sensor 78 Pulse Rhythm Pulse Rhythm [Apical] Pulse Strength [Apical] Respiratory Rate 16 18 Respiratory Effort / Characteristics Respiratory Depth Normal Respiratory Pattern Blood Pressure 219/99 H 184/85 H Blood Pressure [Left Arm] Blood Pressure Mean 139 118 Blood Pressure Mean [Left Arm] Blood Pressure Position [Left Arm] Pulse Oximetry 100 97 Oxygen Delivery Method Oxygen Flow Rate Sepsis Recent Fever Within 48 Hours No Sepsis New/Unexplained Change in Mental Status No Sepsis Action Taken by Nursing No Action Required 07/04/23 04:20 07/04/23 06:00 07/04/23 09:44 Temperature 36.9 C Temperature Source Oral Pulse Rate 81 Pulse Rate [Apical] 68 83 Pulse Rate from SpO2 Sensor Pulse Rhythm Regular Pulse Rhythm [Apical] Regular Regular Pulse Strength [Apical] Normal Normal Respiratory Rate 16 20 18 Respiratory Effort / Characteristics Non-Labored Spontaneous Non-Labored Respiratory Depth Normal Normal Respiratory Pattern Regular Regular Blood Pressure Blood Pressure [Left Arm] 134/70 134/74 Blood Pressure Mean Blood Pressure Mean [Left Arm] 91 94 Blood Pressure Position [Left Arm] Lying Pulse Oximetry 91 100 95 Oxygen Delivery Method Room Air Nasal Cannula Room Air Oxygen Flow Rate 2 Sepsis Recent Fever Within 48 Hours Sepsis New/Unexplained Change in Mental Status Sepsis Action Taken by Nursing 07/04/23 11:22 07/04/23 12:01 Temperature Temperature Source Pulse Rate Pulse Rate [Apical] 74 79 Pulse Rate from SpO2 Sensor Pulse Rhythm Pulse Rhythm [Apical] Regular Regular Pulse Strength [Apical] Normal Normal Respiratory Rate 14 18 Respiratory Effort / Characteristics Non-Labored Non-Labored Respiratory Depth Normal Normal Respiratory Pattern Regular Regular Blood Pressure Blood Pressure [Left Arm] 136/63 112/53 L Blood Pressure Mean Blood Pressure Mean [Left Arm] 87 72 Blood Pressure Position [Left Arm] Sitting Sitting Pulse Oximetry 99 98 Oxygen Delivery Method Room Air Room Air Oxygen Flow Rate Sepsis Recent Fever Within 48 Hours Sepsis New/Unexplained Change in Mental Status Sepsis Action Taken by Nursing Laboratory Data 07/04/23 01:06 07/04/23 01:06 Lab Results 07/04/23 07/04/23 07/04/23 Range/Units 01:06 01:10 12:11 WBC 10.09 (4.8-10.8) K/ul RBC 4.58 (4.20-5.40) M/uL Hgb 13.6 (12.0-16.0) g/dl Hct 40.0 (37.0-47.0) % MCV 87.3 (80.0-100.0) fL MCH 29.7 (25.0-34.0) pg MCHC 34.0 (32.0-36.0) g/dL RDW Std Deviation 42.1 (36.4-46.3) fL RDW Coeff of Bridgette 13.1 (11.5-14.5) % Plt Count 295 (130-400) K/uL MPV 11.4 (9.4-12.4) fL Immature Gran % (Auto) 0.2 % Neut % (Auto) 59.7 % Lymph % (Auto) 29.5 % [place] % (Auto) 7.4 % Eos % (Auto) 2.7 % Baso % (Auto) 0.5 % Neut # (Auto) 6.02 (1.40-6.50) K/uL Lymph # (Auto) 2.98 (1.20-3.40) K/uL [place] # (Auto) 0.75 H (0.11-0.59) K/uL Eos # (Auto) 0.27 (0.00-0.50) K/uL Baso # (Auto) 0.05 (0.00-0.20) K/uL Immature Gran # (Auto) 0.02 (0.01-0.20) K/uL Sodium 136 (136-145) mmol/L Potassium 3.6 (3.5-5.1) mmol/L Chloride 100 (98-107) mmol/L Carbon Dioxide 25 (21-32) mmol/L Anion Gap 11 (3-11) BUN 17 (6-23) mg/dl Creatinine 0.85 (0.6-1.2) mg/dl Est Cr Clr Drug Dosing 49.9 ml/min Est GFR ( Amer) 81.6 ml/min Est GFR (Non-Af Amer) 70.4 ml/min BUN/Creatinine Ratio 20.0 (10-20) Glucose 180 H (70-99(Fasting)) mg/dl POC Glucose 115 H (70-99) mg/dl Calcium 9.4 (8.6-10.3) mg/dl Total Bilirubin 0.7 (0.2-1.0) mg/dl AST 15 (13-39) U/L ALT 11 (7-52) U/L Alkaline Phosphatase 56 (34-104) U/L Total Protein 7.3 (6.0-8.3) gm/dl Albumin 4.4 (3.4-5.0) gm/dl Globulin 2.9 (2.5-4.0) gm/dl Albumin/Globulin Ratio 1.5 (0.9-2) Lipase 106 H (11-82) U/L Urine Color [place] Urine Appearance Clear (Clear) Urine pH (4.5-7.5) Ur Specific [place] 1.014 (1.000-1.030) Urine Protein (Negative) Urine Glucose (UA) (Negative) Urine Ketones (Negative) Urine Blood (Negative) Urine Nitrite (Negative) Urine Bilirubin (Negative) Urine Urobilinogen (Negative) Ur Leukocyte Esterase (Negative) Urine RBC 10-30 H (0-4) /hpf Urine WBC 0-5 (0-5) /hpf Ur Epithelial Cells 10-20 H (0-5) /lpf Amorphous Sediment Present A (None Prsent) Urine Bacteria Negative (Negative) Hyaline Casts 0-5 (0-5) /lpf Administered Medications Lactated Ringer's (Lr) 1,000 mls @ 125 mls/hr IV .Q8H RICKIE Stop: 08/03/23 11:27 Last Admin: 07/04/23 13:18 Dose: 125 mls/hr Documented By: ISABELLA Insulin Aspart (Insulin Aspart Per Unit Charge) 0 units SC ACHS RICKIE Stop: 08/03/23 11:29 Last Admin: 07/04/23 18:31 Dose: Not Given Documented By: Admin: 07/04/23 13:17 Dose: Not Given Documented By: ISABELLA Co-signed By: QGV Lisinopril (Lisinopril 10 Mg Tab) 10 mg PO QAM RICKIE Stop: 08/03/23 12:29 Last Admin: 07/04/23 13:17 Dose: 10 mg Documented By: ISABELLA Timolol Maleate (Timolol Maleate 0.5% Op Soln 5 Ml Btl) 1 drops OP QAM RICKIE Stop: 08/03/23 12:29 Last Admin: 07/04/23 15:14 Dose: Not Given Documented By: BARAK Vitamin D (Cholecalciferol 1,000 Units 25 Mcg Tab) 1,000 units PO DAILY RICKIE Stop: 08/03/23 11:27 Last Admin: 07/04/23 13:18 Dose: 1,000 units Documented By: ISABELLA Discontinued Medications Fentanyl Citrate (Fentanyl Citrate Pf 100 Mcg/2 Ml Vial) 50 mcg IV NOW STA Stop: 07/04/23 03:18 Last Admin: 07/04/23 03:22 Dose: 50 mcg Documented By: WARREN Fentanyl Citrate (Fentanyl Citrate Pf 100 Mcg/2 Ml Vial) 50 mcg IV NOW STA Stop: 07/04/23 05:27 Last Admin: 07/04/23 05:38 Dose: 50 mcg Documented By: WARREN Fentanyl Citrate (Fentanyl Citrate Pf 100 Mcg/2 Ml Vial) 25 mcg IV NOW STA Stop: 07/04/23 06:35 Last Admin: 07/04/23 06:41 Dose: 25 mcg Documented By: WARREN Hydromorphone HCl (Hydromorphone Inj 0.5 Mg/0.5 Ml Syr) 0.5 mg IV NOW STA Stop: 07/04/23 10:15 Last Admin: 07/04/23 10:27 Dose: 0.5 mg Documented By: ISABELLA Sodium Chloride (Nss) 1,000 mls @ 999 mls/hr IV .Q1H1M RICKIE Stop: 07/04/23 03:15 Last Infusion: 07/04/23 03:06 Dose: Infused Documented By: Admin: 07/04/23 02:05 Dose: 999 mls/hr Documented By: WARREN Ketorolac Tromethamine (Ketorolac Tromethamine 15 Mg/Ml Vial) 15 mg IV NOW STA Stop: 07/04/23 02:03 Last Admin: 07/04/23 02:04 Dose: 15 mg Documented By: WARREN Metoclopramide HCl (Metoclopramide Hcl Inj 5 Mg/Ml 2 Ml Vial) 10 mg IV NOW STA Stop: 07/04/23 05:27 Last Admin: 07/04/23 05:42 Dose: 10 mg Documented By: WARREN Morphine Sulfate (Morphine Sulfate 4 Mg/Ml 1 Ml Carp\Vial) 4 mg IV NOW STA Stop: 07/04/23 09:51 Last Admin: 07/04/23 10:09 Dose: Not Given Documented By: ISABELLA Ondansetron HCl (Ondansetron Inj 2 Mg/Ml 2 Ml Vial) 4 mg IV NOW STA Stop: 07/04/23 02:03 Last Admin: 07/04/23 02:04 Dose: 4 mg Documented By: WARREN Tamsulosin HCl (Tamsulosin Hcl 0.4 Mg Cap) 0.4 mg PO NOW ONE Stop: 07/04/23 06:35 Last Admin: 07/04/23 06:41 Dose: 0.4 mg Documented By: WARREN Discharge Plan Visit Data Chief Complaint: GI Assessment Stated Complaint: FREQUENT URINATION AND BOWEL MVMNT,PAIN ED Provider: James Allen ED Midlevel Provider: Stacey Castellano Discharge Problem: Calculus of distal left ureter Patient Disposition: Admitted As Inpatient Condition: Good Discharge Instructions Interventions: ED Discharge Assessment Last Done: 07/04/23 11:27
[2023-07-04] MEDS ORDERED: fentaNYL citrate PF 100 MCG/2 ML VIAL IV STA ×3 (03:17→06:34)
[2023-07-04] MEDS ORDERED: METOCLOPRAMIDE HCL INJ 5 MG/ML 2 ML VIAL IV STA (05:26)
--- NOTE | 2023-07-04 06:19 | CT Scan Report ---
Exam(s): CT ABDOMEN + PELVIS Without Contrast EXAM: CT Abdomen and Pelvis Without Intravenous Contrast CLINICAL HISTORY: Reason for exam: Left sided pain - Eval stone vs pyelo vs pancreati. TECHNIQUE: Axial computed tomography images of the abdomen and pelvis without intravenous contrast. CTDI is 19.11 mGy and DLP is 811.14 mGy-cm. Automated exposure control was utilized for the study. A dose lowering technique was utilized adhering to the principles of ALARA. COMPARISON: No relevant prior studies available. FINDINGS: Limitations: Limited examination in the absence of contrast. Lung bases: Unremarkable. No mass. No consolidation. ABDOMEN: Liver: Unremarkable. Gallbladder and bile ducts: Unremarkable. No calcified stones. No ductal dilation. Pancreas: Unremarkable. No ductal dilation. Spleen: Small splenule. Adrenals: Unremarkable. No mass. Kidneys and ureters: Obstructive 4 x 3 x 3 mm calculus within the left distal ureter adjacent to the left ureterovesicular junction (noted on pulmonary physician imaging) with upstream moderate left renal hydronephrosis with perinephric and periureteral stranding. Nonobstructive left renal calculi, the largest within the inferior pole of the left kidney measuring up to 3 mm. Stomach and bowel: No evidence of bowel obstruction. No mucosal thickening. PELVIS: Appendix: Normal appendix. Bladder: Unremarkable. No stones. Reproductive: Unremarkable as visualized. ABDOMEN and PELVIS: Intraperitoneal space: Unremarkable. No free air. No significant fluid collection. Bones/joints: Degenerative changes in the spine. Bilateral L5 pars defects. No acute fracture. No dislocation. Soft tissues: Umbilical hernia containing fat. Vasculature: Unremarkable. No abdominal aortic aneurysm. Lymph nodes: Unremarkable. No enlarged lymph nodes. IMPRESSION: 1. Obstructive 4 x 3 x 3 mm calculus within the left distal ureter adjacent to the left ureterovesicular junction (noted on pulmonary physician imaging) with upstream moderate left renal hydronephrosis with perinephric and periureteral stranding. 2. Nonobstructive left renal calculi, the largest within the inferior pole of the left kidney measuring up to 3 mm. 3. Incidental findings as described. Electronically signed by: Navneet Magdaleno MD 07/04/23 06:18 AM
[2023-07-04] MEDS ORDERED: TAMSULOSIN HCL 0.4 MG CAP PO ONE (06:34)
--- NOTE | 2023-07-04 09:51 | Urology Consultation ---
Date of Consultation July 04, 2023 Assessment & Plan (1) Calculus of distal left ureter: (2) Hydronephrosis of left kidney: 68 yo F with history of nephrolithiasis who presented to the emergency department today with left flank pain, nausea and vomiting. CT imaging showed an obstructing 4 mm left distal ureteral stone with moderate hydronephrosis. Patient afebrile, hemodynamically stable Labs show normal renal function, no leukocytosis UA showed 10-30 RBC, 10-20 epithelials, negative for bacteria Urine culture ordered CT imaging reviewed and discussed with patientnotable moderate hydronephrosis secondary to an obstructing 4 mm left distal ureteral stone near the UVJ Discussed options for stone management including max expulsion therapy/trial of passage versus surgical intervention Discussed surgical intervention with left ureteral stent placement while inpatient or outpatient surgical options if pain is controlled After discussion, she elects trial of passage today Okay to resume diet today Make NPO at midnight to reassess in the morning Recommend continue Tamsulosin, prn analgesia and antiemetics Continue supportive care, hydration Strain all urine will follow History of Present Illness History of Present Illness This is a 68-year-old female with past medical history of hypertension, diabetes and nephrolithiasis who presented to the emergency department today with left flank pain, nausea and vomiting. On arrival she was afebrile, hypertensive but otherwise stable vitals. Lab work showed creatinine of 0.85, WBC 10.09, hemoglobin 13.6. Urinalysis was unable to be interpreted, microscopy noted 10-30 RBCs, 0-5 WBCs, negative for bacteria, amorphous sediment noted. CT imaging obtained. CT independently reviewed and notable for a left distal ureteral stone measuring approximately 4 mm near the UVJ, moderate left hydroureteronephrosis. ED course: IV fluids, ketorolac, ondansetron. Urology is consulted for left ureteral stone. Patient is known to our service for nephrolithiasis, follows with Dr. Tamayo. Previous history of left stent placement and subsequent left ureteroscopy, laser lithotripsy and stent removal (Jun 2021). Patient seen and examined in the emergency department. She is awake and resting in litter. No apparent distress. She notes she was treated for a UTI last week. Reports left flank pain started yesterday afternoon. Currently notes dysuria, no hematuria. She reports nausea and vomiting prior to arrival, but resolved at present. No fever or chills. Last ate yesterday evening. Allergies Allergy/AdvReac Type Severity Reaction Status Date / Time Penicillins Allergy Severe Anaphylaxis Verified 07/04/23 02:04 Cephalosporins Allergy Intermediate HIVES Verified 07/04/23 02:04 codeine Allergy Intermediate HIVES Verified 07/04/23 02:04 tramadol Allergy Intermediate severe Verified 07/04/23 02:04 migraines morphine AdvReac Intermediate severe Verified 07/04/23 02:04 headache and nausea Home Medications Medication Instructions Recorded Confirmed Type cyanocobalamin (vitamin B-12) 1,000 mcg PO QAM 06/26/18 07/04/23 History 1,000 mcg tablet (Vitamin B-12) insulin detemir U-100 100 unit/mL 20 unit subcut HS PRN IF NEEDED 06/26/18 07/04/23 History subcutaneous solution (Levemir PER PT. U-100 Insulin) lisinopril 10 mg tablet 10 mg PO QAM 01/21/19 07/04/23 History timolol maleate 0.5 % eye drops 1 drp ophthalmic (eye) QAM 06/24/21 07/04/23 History travoprost 0.004 % eye drops 1 drp ophthalmic (eye) HS 06/24/21 07/04/23 History ginkgo biloba 40 mg tablet 40 mg PO QAM 07/01/21 07/04/23 History pravastatin 40 mg tablet 40 mg PO HS 07/13/21 07/04/23 History cholecalciferol (vitamin D3) 25 25 mcg PO DAILY 07/04/23 07/04/23 History mcg (1,000 unit) capsule (Vitamin D3) tirzepatide 2.5 mg/0.5 mL 2.5 mg subcut WK 07/04/23 07/04/23 History subcutaneous pen injector (Mounjaro) zinc gluconate 50 mg tablet 50 mg PO DAILY 07/04/23 07/04/23 History Patient History Medical History (Updated 07/04/23 @ 09:50 by SIM Paniagua) Glaucoma Hydronephrosis of left kidney Kidney stone on left side Hypertension Encounter for pre-operative examination Asthma A CHILD Diabetes mellitus, type 2 IDDM Surgical History History of cystoscopy History of cataract surgery BL Status post trigger finger release X 3 History of bilateral tubal ligation Hx of lumpectomy LEFT BREAST - BENIGN History of breast biopsy LEFT BREAST - BENIGN History of tooth extraction Family History Grandmother Family hx of colon cancer Family/Other Family history of diabetes mellitus Other No family history of adverse response to anesthesia Social History Smoking Status: Current every day smoker Second Hand Exposure: No; Do You Dip or Chew Tobacco: No; Hx Alcohol Use: No Hx Substance Use: No Preferred Language: Welsh Communication Ability: Effective Copy Cutter Required: No Beliefs That Will Affect Care: None Current Living Situation: Family Current Living Situation Comment: 2 grandsons and 1 son. Feels Safe at Home: Yes Assistive Devices: Glasses Review of Systems Review of Systems: All systems reviewed & are unremarkable except as noted in HPI & below Respiratory: no dyspnea Cardiovascular: no chest pain Physical Exam Physical Exam: General: well-appearing, no acute distress HEENT: Normocephalic Pulmonary: Nonlabored respirations CV: No lower extemity edema Abdomen: Nondistended Extremities: Moves all 4 spontaneously Neuro: No gross deficits Psych: alert and oriented, normal mood Skin: Warm, dry, no rashes noted Results & Data Vital Signs (Past 12 Hours) Vital Signs Temp Pulse Pulse Resp BP BP Pulse Ox 07/04/23 06:00 68 20 134/70 100 07/04/23 04:20 81 16 91 07/04/23 04:03 79 07/04/23 04:03 77 18 184/85 H 97 07/04/23 00:27 36 C L 79 16 219/99 H 100 O2 Del Method O2 Flow Rate 07/04/23 06:00 Nasal Cannula 2 07/04/23 04:20 Room Air 07/04/23 04:03 07/04/23 04:03 07/04/23 00:27 PG Care Time/CCT Total # of Minutes Spent Total Time Spent with Patient: Total time spent is greater than 50% in coordination of care (as documented) at patient's floor/unit and/or counseling patient: Coding Level of Care Code 04521 IN/OBS CONSULT LVL 4,60M Diagnoses Calculus of distal left ureter N20.1 Hydronephrosis of left kidney N13.30
[2023-07-04] MEDS: MoRPHine SULFATE 4 MG/ML 1 ML CARP\\VIAL IV STA ×2 (10:07→10:09)
[2023-07-04] MEDS ORDERED: HYDROmorphone INJ 0.5 MG/0.5 ML SYR IV STA (10:14)
[2023-07-04] MEDS ORDERED: KETOROLAC TROMETHAMINE 15 MG/ML VIAL IV PRN (11:28)
[2023-07-04] MEDS ORDERED: POLYETHYLENE (MIRALAX) 17 GM PACK PO PRN (11:28)
[2023-07-04] MEDS ORDERED: ACETAMINOPHEN 325 MG TAB PO PRN (11:28)
[2023-07-04] MEDS ORDERED: ONDANSETRON INJ 2 MG/ML 2 ML VIAL IV PRN (11:28)
[2023-07-04] MEDS ORDERED: MAGNESIUM HYDROXIDE SUSP 30 ML UDC PO PRN (11:28)
[2023-07-04] MEDS ORDERED: MoRPHine SULFATE 4 MG/ML 1 ML CARP\\VIAL IV PRN (11:28)
[2023-07-04] MEDS ORDERED: ALUMINUM/MAGNESIUM SUSP 30 ML UDC PO PRN (11:28)
[2023-07-04] MEDS ORDERED: TAMSULOSIN HCL 0.4 MG CAP PO SCH (12:30)
--- NOTE | 2023-07-04 12:53 | History & Physical Report ---
Date of Service July 04, 2023 Assessment & Plan (1) Calculus of distal left ureter: Plan: Consult urology, pain control, symptom management, Flomax. (2) Diabetes: Plan: Fingersticks and supplemental insulin, Mounjaro on hold, at the same time she has not needed much insulintherefore we will start with being reactive, and changed to basal bolus it appears she will need it (3) Hypertension: Plan: blood pressure reasonable given the situation, but also her kidney function is goodcontinue her home lisinopril (4) DVT prophylaxis: Plan: ambulation (5) Discharge planning issues: Plan: admit to [facility] service Home once symptoms are controlled. Admission and Anticipated Discharge Date Admission Date: July 04, 2023 History of Present Illness Chief Complaint: left flank pain Primary Care Provider: Earline Guillen, DO GI symptoms and L flank pain. At first she wondered if it was her GLP, she started that about 3 months ago, has had some off-and-on GI symptoms, although over the last month she has not felt that bad most of the time then flank pain got worse GI symptoms got worse, felt more reminiscent of kidney stone, came to the hospital. Found to have a ureterolithiasis. Otherwise no acute symptoms. Has been weaning herself off of insulin since starting the Mounjaro Allergies Allergy/AdvReac Type Severity Reaction Status Date / Time Penicillins Allergy Severe Anaphylaxis Verified 07/04/23 02:04 Cephalosporins Allergy Intermediate HIVES Verified 07/04/23 02:04 codeine Allergy Intermediate HIVES Verified 07/04/23 02:04 tramadol Allergy Intermediate severe Verified 07/04/23 02:04 migraines morphine AdvReac Intermediate severe Verified 07/04/23 02:04 headache and nausea Home Medications Medication Instructions Recorded Confirmed Type cyanocobalamin (vitamin B-12) 1,000 mcg PO QAM 06/26/18 07/04/23 History 1,000 mcg tablet (Vitamin B-12) insulin detemir U-100 100 unit/mL 20 unit subcut HS PRN IF NEEDED 06/26/18 07/04/23 History subcutaneous solution (Levemir PER PT. U-100 Insulin) lisinopril 10 mg tablet 10 mg PO QAM 01/21/19 07/04/23 History timolol maleate 0.5 % eye drops 1 drp ophthalmic (eye) QAM 06/24/21 07/04/23 History travoprost 0.004 % eye drops 1 drp ophthalmic (eye) HS 06/24/21 07/04/23 History ginkgo biloba 40 mg tablet 40 mg PO QAM 07/01/21 07/04/23 History pravastatin 40 mg tablet 40 mg PO HS 07/13/21 07/04/23 History cholecalciferol (vitamin D3) 25 25 mcg PO DAILY 07/04/23 07/04/23 History mcg (1,000 unit) capsule (Vitamin D3) tirzepatide 2.5 mg/0.5 mL 2.5 mg subcut WK 07/04/23 07/04/23 History subcutaneous pen injector (Mounjaro) zinc gluconate 50 mg tablet 50 mg PO DAILY 07/04/23 07/04/23 History Past Med/Surg History Medical History Glaucoma Hydronephrosis of left kidney Kidney stone on left side Hypertension Encounter for pre-operative examination Asthma A CHILD Diabetes mellitus, type 2 IDDM Surgical History History of cystoscopy History of cataract surgery BL Status post trigger finger release X 3 History of bilateral tubal ligation Hx of lumpectomy LEFT BREAST - BENIGN History of breast biopsy LEFT BREAST - BENIGN History of tooth extraction Family History Grandmother Family hx of colon cancer Family/Other Family history of diabetes mellitus Other No family history of adverse response to anesthesia Social History Smoking Status: Current every day smoker Second Hand Exposure: No; Do You Dip or Chew Tobacco: No; Hx Alcohol Use: No Hx Substance Use: No Preferred Language: Vietnamese Communication Ability: Effective Health Diagnostics Teacher Required: No Beliefs That Will Affect Care: None Current Living Situation: Family Current Living Situation Comment: 2 grandsons and 1 son. Feels Safe at Home: Yes Assistive Devices: Glasses Review of Systems Review of Systems: All systems reviewed & are unremarkable except as noted in HPI & below Physical Exam Physical Exam: in general she is awake and alert oriented pleasant but does appear to be in a degree of pain distress. HEENT normocephalic atraumatic mucous membranes moist. Cardio is regular without rubs murmurs or gallops. Lungs clear to auscultation bilaterally no rales rhonchi or wheezes. She has mild but notable left CVA tenderness. Skin shows no rashes no pallor or icterus. Neuro without focal deficits. Results & Data Results & Data Vital Signs (Past 12 Hours) Vital Signs Temp Pulse Pulse Resp BP BP Pulse Ox 07/04/23 11:22 74 14 136/63 99 07/04/23 09:44 98.4 F 83 18 134/74 95 07/04/23 06:00 68 20 134/70 100 07/04/23 04:20 81 16 91 07/04/23 04:03 79 07/04/23 04:03 77 18 184/85 H 97 O2 Del Method O2 Flow Rate 07/04/23 11:22 Room Air 07/04/23 09:44 Room Air 07/04/23 06:00 Nasal Cannula 2 07/04/23 04:20 Room Air 07/04/23 04:03 07/04/23 04:03 Code Status & VTE Plan VTE Prophylaxis Plan VTE Prophylaxis will be ordered: No Reason for no VTE drug order: Treatment not indicated PG Care Time/CCT Total # of Minutes Spent Total Time Spent with Patient: Total time spent is greater than 50% in coordination of care (as documented) at patient's floor/unit and/or counseling patient: Coding Level of Care Code 28101 INT INP/OBS CARE 3/75MIN Diagnoses Calculus of distal left ureter N20.1 Diabetes E11.9 Hypertension I10 DVT prophylaxis Z29.9 Discharge planning issues Z02.9
[2023-07-04] MEDS ORDERED: HYDROmorphone INJ 0.5 MG/0.5 ML SYR IV PRN (12:55)
[2023-07-04] MEDS: lisinopril 10 MG TAB PO SCH (13:17)
[2023-07-04] MEDS: INSULIN ASPART PER UNIT CHARGE SC SCH ×3 (13:17→20:28)
[2023-07-04] MEDS: CHOLECALCIFEROL 1,000 UNITS 25 MCG TAB PO SCH (13:18)
[2023-07-04] MEDS: LACTATED RINGER'S 1,000 ML IV SCH ×2 (13:18→21:35)
[2023-07-04] MEDS: TIMOLOL MALEATE 0.5% OP SOLN 5 ML BTL OP SCH (15:14)
[2023-07-04] MEDS ORDERED: PRAVASTATIN SOD 40 MG TAB PO SCH (21:00)
[2023-07-04] MEDS ORDERED: TRAVOPROST Z 0.004% OPH SOLN 2.5 ML BTL OP SCH (21:00)
[2023-07-05] MEDS ORDERED: Nursing to Pharmacy Communication SCH (00:15)
[2023-07-05] MEDS: LACTATED RINGER'S 1,000 ML IV SCH (05:41)
[2023-07-05] MEDS: INSULIN ASPART PER UNIT CHARGE SC SCH ×2 (05:47→12:49)
--- NOTE | 2023-07-05 07:35 | Hospitalist Progress Note ---
Date of Service July 05, 2023 Assessment & Plan (1) Calculus of distal left ureter: (2) Hypertension: (3) Diabetes: Plan Calculus of distal left ureter: Plan: Consult urology, pain control, symptom management, Flomax. (2) Diabetes: Plan: Fingersticks and supplemental insulin, Mounjaro on hold, at the same time she has not needed much insulintherefore we will start with being reactive, and changed to basal bolus it appears she will need it (3) Hypertension: Plan: blood pressure reasonable given the situation, but also her kidney function is goodcontinue her home lisinopril (4) DVT prophylaxis: Plan: ambulation Admission and Anticipated Discharge Date Admission Date: July 04, 2023 Subjective Pt is a [] yo [] with a past medical history of [] who presents to the hospital on [] for []. Review of Systems Review of Systems: Constitutional: denies fever, chills, [] HEENT: denies congestion, sore throat Cardio: denies chest pain, palpitations Resp: denies shortness of breath, cough GI: denies abdominal pain, nausea, vomiting, constipation, diarrhea : denies pain with urination, change in urinary frequency Neuro: denies new numbness, tingling, weakness Physical Exam Physical Exam: General:Alert and oriented, no acute distress, [] HEENT: Normocephalic, moist oral mucosa, Cardio: Regular rate and rhythm, no murmur, Resp:Lungs clear to auscultation b/l, no wheezes or rhonchi, GI: Soft and nontender, nondistended, bowel sounds active Skin: Warm, pink, dry, Psych: Mood-affect congruence. Results & Data Results & Data Vital Signs (Past 12 Hours) Vital Signs Temp Pulse Resp BP Pulse Ox O2 Del Method 07/05/23 07:30 36.5 C 66 22 163/82 H 93 Room Air 07/04/23 23:24 37.4 C 72 18 130/66 94 Room Air 07/04/23 20:27 36.9 C 74 16 128/70 94 Room Air
--- NOTE | 2023-07-05 08:44 | Urology Progress Note ---
Date of Service July 05, 2023 Assessment & Plan (1) Calculus of distal left ureter: Plan: Follow-up of 4mm left distal ureteral stone Patient spontaneously passed stone overnight Stone analysis is pending Patient subjectively feeling much better No acute intervention warranted at this time Okay to d/c patient from perspective Will arrange outpatient follow-up with our office in a few weeks with renal ultrasound will sign off Admission and Anticipated Discharge Date Admission Date: July 04, 2023 Subjective Patient seen and examined at bedside this morning Reports she passed her stone overnight Stone was sent for analysis and pending She is subjectively feeling much better today No flank pain, nausea or vomiting No fever or chills Review of Systems Constitutional: as per Subjective / HPI Gastrointestinal: as per Subjective / HPI Genitourinary: as per Subjective / HPI Physical Exam Physical Exam: General: well-appearing, no acute distress HEENT: Normocephalic, mucous membranes moist Pulmonary: Nonlabored respirations Abdomen: Nondistended Extremities: Moves all 4 spontaneously Neuro: No gross deficits Psych: alert and oriented, normal mood Skin: Warm, dry, no rashes noted Results & Data Vital Signs (Past 12 Hours) Vital Signs Temp Pulse Resp BP Pulse Ox O2 Del Method 07/05/23 07:30 36.9 C 68 18 115/70 92 Room Air 07/04/23 23:24 37.4 C 72 18 130/66 94 Room Air PG Care Time/CCT Total # of Minutes Spent Total Time Spent with Patient: Total time spent is greater than 50% in coordination of care (as documented) at patient's floor/unit and/or counseling patient: Coding Level of Care Code 39370 SUB INP/OBS CARE /25MIN Diagnoses Calculus of distal left ureter N20.1
[2023-07-05] MEDS ORDERED: TAMSULOSIN HCL 0.4 MG CAP PO SCH (09:00)
[2023-07-05] MEDS: lisinopril 10 MG TAB PO SCH (11:25)
[2023-07-05] MEDS: TIMOLOL MALEATE 0.5% OP SOLN 5 ML BTL OP SCH (11:26)
--- NOTE | 2023-07-05 11:48 | Discharge Summary ---
Date of Service July 05, 2023 Admission HPI Per Admitting Provider GI symptoms and L flank pain. At first she wondered if it was her GLP, she started that about 3 months ago, has had some off-and-on GI symptoms, although over the last month she has not felt that bad most of the time then flank pain got worse GI symptoms got worse, felt more reminiscent of kidney stone, came to the hospital. Found to have a ureterolithiasis. Otherwise no acute symptoms. Has been weaning herself off of insulin since starting the [facility] Admission Exam Per Admitting Provider Physical Exam: in general she is awake and alert oriented pleasant but does appear to be in a degree of pain distress. HEENT normocephalic atraumatic mucous membranes moist. Cardio is regular without rubs murmurs or gallops. Lungs clear to auscultation bilaterally no rales rhonchi or wheezes. She has mild but notable left CVA tenderness. Skin shows no rashes no pallor or icterus. Neuro without focal deficits. Principal Diagnosis Kidney stone Discharge Exam General:Alert and oriented, no acute distress, HEENT: Normocephalic, moist oral mucosa, Cardio: Regular rate and rhythm, no murmur, Resp:Lungs clear to auscultation b/l, no wheezes or rhonchi, GI: Soft and nontender, nondistended, bowel sounds active Skin: Warm, pink, dry, Psych: Mood-affect congruence. Discharge Data Allergies Allergy/AdvReac Type Severity Reaction Status Date / Time Penicillins Allergy Severe Anaphylaxis Verified 07/04/23 02:04 Cephalosporins Allergy Intermediate HIVES Verified 07/04/23 02:04 codeine Allergy Intermediate HIVES Verified 07/04/23 02:04 tramadol Allergy Intermediate severe Verified 07/04/23 02:04 migraines morphine AdvReac Intermediate severe Verified 07/04/23 02:04 headache and nausea Consultations 07/04/23 08:14 Consult Urology Routine 07/04/23 08:18 ED Decision to Admit Stat Ordered Studies 07/04/23 03:17 CT abd pelvis wo con Stat Hospital Course (1) Calculus of distal left ureter: (2) Hypertension: (3) Diabetes: Plan Pt is a 68 yo female who presents for kidney stone. Pt states she passed the stone last night and is now feeling great so is okay to go home. Stable for discharge at this time. Calculus of distal left ureter - pain control and flomax given - Consult urology; as pt has passed the stone, ok to go home per uro Diabetes - Fingersticks and supplemental insulin - Mounjaro on hold, at the same time she has not needed much insulintherefore we will start with being reactive, and changed to basal bolus it appears she will need it Hypertension - blood pressure reasonable given the situation, but also her kidney function is goodcontinue her home lisinopril Total Time Total Time Spent Total Time Spent (In Minutes): <30 Discharge Plan Discharge Items Patient Disposition: Home - Self-Care Reason For Visit: SYMPTOMATIC URETEROLITHIASIS Discharge Diagnosis: Kidney stone Condition on Discharge: Good Activity: Per Instructions section Non-emergency contact: Primary Care Provider and Urologist Call non-emergency contact if: you have any medication questions, your symptoms worsen and your temperature is above 101.5 Follow-up/Referrals: Henrik Benítez MD [Physician] - Earline Guillen DO [Primary Care Provider] - 07/17/23 3:45 pm (Appointment will be with at [facility]) Diet: Carb Consistent or DM2 Addtl Attending Provider Instructions: You were admitted for kidney stone. You were able to pass the stone during your hospitalization and your symptoms have resolved, so we feel it is safe for you to return home at this time and follow-up with your urologist outpatient. Medications: Your medication list has been reviewed and reconciled upon discharge to ensure accuracy and continuity of care. An updated list of all your medications is included with your hospital discharge paperwork. Please review this list closely, and make note of any changes. If you have any issues filling these prescriptions, please call [phone] and ask to leave a message for Dr. Ball. Take your medications as instructed; do not skip a dose of your medicines. Make sure all of your doctors know every medicine you are taking (including usuu-hpi-vgrnvze medicines, vitamins, and supplements). Call your primary care provider before taking any new medicines (including over- the-counter medicines, vitamins, and supplements), because some of these may interact with your current medications, or may make your symptoms worse. Tell your primary care provider if you cannot afford your medications. Activity: You can do normal everyday activities as your body allows. Take rest breaks if you feel tired. Do not overexert. Stop activity if you have pain, shortness of breath or feel dizzy. Follow-up appointments: Make an appointment with your primary care physician within one week of discharge. A copy of this summary will be sent to them. Every time you see your primary care physician, or any other doctor, bring your medication list, and a list of questions. CONTACT YOUR PRIMARY CARE PROVIDER if you experience any of the following: Shortness of breath or difficulty breathing Swelling of your feet, ankles, hands or abdomen Feeling tired with normal activity or experiencing dizziness or fainting Difficulty following your treatment plan, or difficulty taking medications CALL 911 OR GO TO THE EMERGENCY DEPARTMENT if you experience any of the following: Severe abdominal pain or nausea/vomiting Severe chest pain, or chest pain that radiates (moves) to your jaw or arm Sudden, severe shortness of breath or difficulty breathing Thank you for allowing us to participate in your care. Pending Studies at Discharge: No Stand-Alone Forms: My [facility] Medications and DC Order Prescriptions: Continued ginkgo biloba 40 mg tablet 40 mg PO QAM Rx Instructions: give with meal/snack lisinopril 10 mg Tablet 10 mg PO QAM cyanocobalamin (vitamin B-12) [Vitamin B-12] 1,000 mcg Tablet 1,000 mcg PO QAM Levemir U-100 Insulin 100 unit/mL Solution 20 unit SUBCUT HS PRN (Reason: IF NEEDED PER PT.) travoprost 0.004 % drops 1 drp ophthalmic (eye) HS timolol maleate 0.5 % drops 1 drp ophthalmic (eye) QAM pravastatin 40 mg Tablet 40 mg PO HS zinc gluconate 50 mg Tablet 50 mg PO DAILY Mounjaro 2.5 mg/0.5 mL pen injector 2.5 mg SUBCUT WK Rx Instructions: THURSDAYS cholecalciferol (vitamin D3) [Vitamin D3] 25 mcg (1,000 unit) Capsule 25 mcg PO DAILY Discharge Orders: Discharge Order (Routine); Ordered 07/05/23 Ordered By: Eloisa Gunderson/Other Patient Handouts: Preventing Kidney Stones Admission Data Admit Date/Time: 07/04/23 12:50 Attending Provider: iMchael Morley Admit Provider: Michael Morley Primary Care Provider: Earline Guillen Other Providers: Henrik Benítez; Michael Morley Other Interventions: Discharge Summary Assessment (RN) Last Done: 07/05/23 12:00 Supervising Physician Co-Signing Physician Notes I personally examined the patient and verified all cheng points of history and exam, discussed case, and agree with decision making with Dr Ball Feeling better passed the stone would like to go home. Vitals noted, in general she is awake and alert pleasant no distress. HEENT normocephalic atraumatic mucous membranes moist. Breathing unlabored no accessory muscle use good effort. Skin shows no rashes no pallor or icterus. Neuro without focal deficits. Symptomatic ureterolithiasis with intractable pain present on admissionnow improved. Passed stone. Safe for home. Outpatient urology follow-up. Otherwise as above. Resident Activity Tracking Resident Involvement: Resident Care Provided Care Provided: Adult Hospital Medicine
[2023-07-05] MEDS: CHOLECALCIFEROL 1,000 UNITS 25 MCG TAB PO SCH (12:11)
--- NOTE | 2023-07-05 18:01 | Billing Data ---
Date of Service July 05, 2023 Coding Level of Care Code 93244 IN/OBS DISCH 30 MIN/LESS
--- NOTE | 2023-07-05 19:27 | Emergency Department Note ---
ED Visit Note I have personally evaluated this patient examined her and reviewed the pertinent labs and data. I have discussed the case with Stacey Castellano, the physician travel assistant and agree with the plan. Please refer to the PA note. This patient comes in with a sudden onset of left flank pain. She was found to have a kidney stone on the left. She has nothing to suggest concomitant infection or UTI. She has no significant electrolyte or metabolic abnormalities. She had received IV fluids and IV medications and was doing a lot better. When I went into his see her and perform a physical exam, she appears to be comfortable. she has no flank tenderness on my exam . she is in no respiratory distress. She did say however that her pain is starting to come back so we did order additional pain medications. She will likely need to be admitted for further pain medication and observation. .
--- OUTSIDE RECORDS SUMMARY | 2023-07-08 08:38 | External Medical Summary | Continuity of Care Document ---
Author Name Unknown Organization [address] Address [address] [place] [address] DR JEFFERS TEMPLETONCARLOS [id number] Care Team Providers Care Transportation Department Supervisor Name Role Phone Earline Guillen Primary Care Physician [phone] Encounter [facility] [id number] Date(s): 04/19/23 - 04/19/[address] [facility] [address], [address] [place] [address] [phone] Encounter Diagnosis Diabetes mellitus type II(Discharge Diagnosis) - 04/19/23 Discharge Disposition: Home or Self Care Attending Physician: DO Guillen Mehwish Referring Physician: DO Guillen Mehwish Allergies, Adverse Reactions, Alerts Substance Reaction Severity Status codeine Active morphine headache Active penicillins Active traMADol blister on lip Active Assessment and Plan Extracted from: Title:Office Visit Note Author:DO Guillen Me hwish Date:04/19/23 1.Diabetes mellitus type I I Patient interested in achieving more optimal control, despite being at goal. - Will start Mounjaro 2.5mg q7 days - Discussed checking blood sugars, but starting levemir 15u at bedtime, decreasing while we can titrate up on Mounjaro. 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 Time: 33_mins _3 - pre-visit chart review 25_ - visit, inclusive of history, exam, and discussion of assessment/plan 5- post-visit documentation/orders/coordination of care Immunizations Given and Recorded Vaccine Date Status Refusal Reason pneumococcal 23-valent vaccine 1, 2 10/19/22 Given tetanus/diphtheria/pertuss, acel (Tdap) 3 10/19/22 Given pneumococcal 13-valent vaccine 06/26/17 Given 1Early/Late Reason: Early/Late Reason: Other : given at visit busy day entered juanito 2Result Comment: eriberto hicks [facility] 3Result Comment: eriberto hicks [facility] Medications BD needle Ultra-Fine Pen Itzel 32G x 4mm Start: 07/11/22 8:31:00 EST, See Instructions, Disp# 100 each, Refills: 6, use daily with lantus pen, Pharmacy: [id number] Start Date: 07/11/22 Status: Ordered Cinnamon Start: 10/19/22 14:03:00 EST, with chromin Start Date: 10/19/22 Status: Ordered diclofenac sodium 75 mg oral delayed release tablet Start: 12/20/22 12:34:00 EDT, 1 tab, PO, bid, Disp# 60 tab, Refills: 4, PRN: as needed for arthritis, Pharmacy: [id number] Start Date: 12/20/22 Status: Ordered FreeStyle Gin 14 day sensor Start: 04/19/23 14:50:00 EDT, See Instructions, Disp# 6 each, Refills: 3, To be worn for diabetes monitoring, Pharmacy: [id number] Start Date: 04/19/23 Status: Ordered Ginkgo Biloba oral capsule Start: 12/24/20 7:55:00 EDT Start Date: 12/24/20 Status: Ordered Levemir FlexTouch 100 units/mL subcutaneous solution Start: 07/14/22 16:29:00 EST, 20 units, subQ, Daily, Disp# 15 mL, Refills: 6, Pharmacy: [facility] Start Date: 07/14/22 Status: Ordered lisinopril 10 mg oral tablet Start: 08/23/22 10:38:00 EST, 1 tab, PO, Daily, Disp# 90 tab, Refills: 3, Pharmacy: [facility] Start Date: 08/23/22 Status: Ordered Mounjaro 2.5 mg/0.5 mL subcutaneous solution Start: 04/19/23 14:57:00 EDT, 2.5 mg =, subQ, q7days, Disp# 2 mL, Refills: 2, Pharmacy: [facility] Start Date: 04/19/23 Status: Ordered pravastatin 40 mg oral tablet Start: 04/20/23 11:48:00 EDT, 1 tab, PO, qhs, Disp# 90 tab, Refills: 3, Pharmacy: [facility] Start Date: 04/20/23 Stop Date: 04/14/24 Status: Ordered ProAir HFA 90 mcg/inh inhalation aerosol Start: 02/06/22 15:23:00 EDT, 1 puff, inhaled, qid, Disp# 6.7 g, Refills: 1, PRN: as needed for wheezing, Pharmacy: [facility] Start Date: 02/06/22 Stop Date: 03/06/22 Status: Ordered timolol Start: 12/24/20 7:55:00 EDT Start Date: 12/24/20 Status: Ordered travoprost 0.004% ophthalmic solution Start: 02/06/22 15:03:00 EDT, 1 drop, both eyes, qPM Start Date: 02/06/22 Status: Ordered Vitamin B12 Start: 02/26/20 13:05:00 EDT Start Date: 02/26/20 Status: Ordered Vitamin D3 2000 intl units oral capsule Start: 02/26/18 9:45:00 EDT, 1 cap, PO, Daily Start Date: 02/26/18 Status: Ordered Zinc Start: 12/24/20 7:54:00 EDT Start Date: 12/24/20 Status: Ordered Mental Status 04/19/23 Barriers to Learning one year None evide nt Mandatory Health Literacy Documentation Yes Health Literacy Communication Barriers N ever Primary Language Nepali Problem List Condition Confirmation Course Effective Dates Status H ealth Status Informant Diabetes mellitus type II Confirmed Active Hyperlipidemia Confirmed Active Hypertension Confirmed Active Lumbago with sciatica Confirmed Active Myalgia due to statin Confirmed Active Post-menopausal Confirmed Active Hypovitaminosis D Confirmed Active Weight disorder Confirmed Active Diagnosis Diagnosis Type Effective Dates Health Status inical Service Informant Diabetes mellitus type II Discharge Diagnosis 04/19/23 Procedures Procedure Date Related Diagnosis Body Site Status Cataract extraction 1 07/24/18 Com pleted Release of trigger finger 11/29/17 Completed Eye examination 2 05/28/17 Complet ed Mammogram 3 05/2016 Completed Fine needle aspiration (FNA) of breast using magnetic resonance imaging guidance 5 04/29/15 Completed Mammogram 6 Completed Tubal ligation Completed 1L eye 2QD 20/20 OD 20/20 with correction f/u 1 yr 3Small nodule in right breast has resolved. Resume annual mammograms next May. 4Cytology: 1. Abundant histiocytes. 2. No malignant cells seen. 5left breast [id number] CAT 3 Probably Benign Results Most recent to oldest [Reference Range]: 1 FIT Outside Not Detected (10/23/22 8:10 AM) FIT Outside Not Processed Sample OK (10/23/22 8:10 AM) Vital Signs Most recent to oldest [Reference Range]: 1 Patient Weight 64.8 kg (04/19/23 2:23 PM) Temperature [36.5-37.9 DegC] 36.7 DegC (04/19/23 2:23 PM) Heart Rate 59 bpm (04/19/23 2:23 PM) Respiratory Rate 18 br/min (04/19/23 2:23 PM) Blood Pressure 142/92mmHg (04/19/23 2:23 PM) Social History Social History Type Response Smoking Status Never smoked cigaret cedric Sex Female FCM Outpt Note * DO Guillen Mehwish: PERFORM Event Display: FCM Outpt Note Authored Date: Chief Complaint DM check History of Present Illness Neftaly is a 68yo female who presents for f/u visit of Type 2 DM. Type 2 DM - last eye exam 2021 - last lipid profile Mar 2022 - Last hgb a1c 10/19/22- 7.2 + urine microalbumin - on statin and CORAL inhibitor Blood glucose: -200s after dinner -highest 306 -lowest 49 - AM glucose typically <140s but occasionally spikes Medications: -levemir 20u nightly - sometimes levemir 10u if bg <130 at bedtime Physical Exam Vitals & Measurements T:36.7C HR:59(Monitored) RR:18 BP:142/92 SpO2:98% WT:64.8kg WT:64.800kg(Dosing) PHQ2 Data(Data Documented on:04/19/2023 14:22) Emotional health assessment NEGATIVE GENERAL APPEARANCE: The patient is alert, oriented and in no acute distress. HEENT: Head is normocephalic/atraumatic. LUNGS: Respirations even and unlabored. EXTREMITIES: No cyanosis, clubbing or edema. Normal monofilament exam bilaterally. DP 2+. sensation intact to light touch. No skin opening/wounds. NEUROLOGICAL: Grossly non-focal exam. SKIN: Warm and dry without any rash Assessment/Plan 1.Diabetes mellitus type II Patient interested in achieving more optimal control, despite being at goal. - Will start Mounjaro 2.5mg q7 days - Discussed checking blood sugars, but starting levemir 15u at bedtime, decreasing while we can titrate up on Mounjaro. 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 Time: 33_mins _3 - pre-visit chart review 25_ - visit, inclusive of history, exam, and discussion of assessment/plan 5- post-visit documentation/orders/coordination of care Problem List/Past Medical History Ongoing Diabetes mellitus type II Hyperlipidemia Hypertension Hypovitaminosis D Lumbago with sciatica Myalgia due to statin Post-menopausal Weight disorder Historical Cellulitis of face Diabetes mellitus Enthesopathy of hip region Hand pain, right Hip arthritis Left breast abscess Patient encounter status Preop examination Right trigger finger Wrist pain, right Procedure/Surgical History Cataract extraction (07/24/2018)Release of trigger finger (11/29/2017)Eye examination (05/28/2017)Mammogram (05/2016)Fine needle aspiration (FNA) of breast using magnetic resonance imaging guidance (04/29/2015)Tubal ligationMammogram Medications albuterol(ProAir HFA 90 mcg/inh inhalation aerosol), 1 puff, inhaled, qid, PRN, 1 refills cholecalciferol(Vitamin D3 2000 intl units oral capsule), 2000 Int_Unit= 1 cap, PO, Daily cinnamon(Cinnamon) cyanocobalamin(Vitamin B12) diabetes supplies(Axentra Gin 14 day sensor), See Instructions, 3 refills diclofenac(diclofenac sodium 75 mg oral delayed release tablet), 75 mg= 1 tab, PO, bid, PRN, 4 refills ginkgo(Ginkgo Biloba oral capsule) insulin detemir(Levemir FlexTouch 100 units/mL subcutaneous solution), 20 units, subQ, Daily, 6 refills lisinopril(lisinopril 10 mg oral tablet), 10 mg= 1 tab, PO, Daily, 3 refills pravastatin(pravastatin 40 mg oral tablet), 40 mg= 1 tab, PO, qhs, 3 refills syringe needles(BD needle Ultra-Fine Pen Itzel 32G x 4mm), See Instructions, 6 refills timolol tirzepatide(Mounjaro 2.5 mg/0.5 mL subcutaneous solution), 2.5 mg, subQ, q7days, 2 refills travoprost ophthalmic(travoprost 0.004% ophthalmic solution), 1 drop, both eyes, qPM zinc sulfate(Zinc) Allergies codeine morphineheadache penicillins traMADolblister on lip Social History Smoking Status Never smoked cigarettes Alcohol - Denies Alcohol Use Exercise - Regular exercise Tobacco - Denies Tobacco Use Use:Never smoker Family History Family history is negative Immunizations Vaccine Date Status pneumococcal 23-valent vaccine 10/19/2022 Given Comments : Early/Late Reason: Other : given at visit busy day entered juanito reiberto hicks [facility] tetanus/diphtheria/pertuss, acel (Tdap) 10/19/2022 Given Comments : eriberto hicks [facility] pneumococcal 13-valent vaccine 06/26/2017 Given Recommendations Health Maintenance Pending(in the next year) OverDue Breast Cancer Screening due03/24/21and every 731day Adult Influenza Vaccine due02/24/23and every 1year Due Adult COVID-19 Vaccination due04/19/23Unknown Frequency Hepatitis C Screening due04/19/23One-time only Medicare Annual Wellness Visit due04/19/23and every 1year Shingles Vaccine due04/19/23One-time only Due In Future Diabetes Management A1c not due until10/19/23and every 1year Colorectal Cancer Screening not due until10/23/23and every 1year Diabetic Eye Exam not due until12/19/23and every 1year Body Mass Index not due until04/18/24and every 1year Satisfied(in the past 1 year) Satisfied Adult Tdap/Td Vaccine on10/19/22.Satisfied by LILIAN Skelton Angela Body Mass Index on01/29/23.Satisfied by LILIAN Bryant Angela M Colorectal Cancer Screening on10/23/22.Satisfied by ADITYA Bro Gillian Diabetes Management A1c on10/19/22.Satisfied by Contributor_system, [email or web address] Diabetes Nephropathy Management on04/20/22.Satisfied by Contributor_system, [email or web address] Lipid Screening on04/20/22.Satisfied by Contributor_system, [email or web address] Electronic Signature on File Electronically Reviewed/Signed by: Earline Guillen DO Author Signature Dt/Tm:04/19/2023 03:29 PM Division of Sports Medicine MM Patient Care team information Care Team Personnel Name: DO Guillen Mehwish Position: Physician Member Role: Primary Care Provider Address: Address: [address] [place] [address] [place] Care Team Related Persons Name: JARED GUILLEN Address: [place] Address: [place] [facility] [phone]
--- OUTSIDE RECORDS SUMMARY | 2023-07-08 08:38 | External Medical Summary | Continuity of Care Document ---
Author Name Unknown Organization [facility] [address] Address [address] [facility] [place] [id number] Care Team Providers Care Sulfur Burner Name Role Phone Earline Guillen Primary Care Physician [phone] Encounter [facility] [id number] Date(s): 04/20/23 - 04/20/23 [facility] [address] [facility] [address] [place], [place] [phone] Encounter Diagnosis Type 2 diabetes mellitus without complications(Final) - Discharge Disposition: Home or Self Care Attending Physician: DO Guillen Mehwish Referring Physician: DO Guillen Mehwish Allergies, Adverse Reactions, Alerts Substance Reaction Severity Status codeine Active morphine headache Active penicillins Active traMADol blister on lip Active Immunizations Given and Recorded Vaccine Date Status Refusal Reason pneumococcal 23-valent vaccine 1, 2 10/19/22 Given tetanus/diphtheria/pertuss, acel (Tdap) 3 10/19/22 Given pneumococcal 13-valent vaccine 06/26/17 Given 1Early/Late Reason: Early/Late Reason: Other : given at visit busy day entered juanito 2Result Comment: eriberto hicks [facility] 3Result Comment: eriberto hicks [facility] Medications BD needle Ultra-Fine Pen Itzel 32G x 4mm Start: 07/11/22 8:31:00 EST, See Instructions, Disp# 100 each, Refills: 6, use daily with lantus pen, Pharmacy: [id number] Start Date: 07/11/22 Status: Ordered Cinnamon Start: 10/19/22 14:03:00 EST, with chromin Start Date: 10/19/22 Status: Ordered diclofenac sodium 75 mg oral delayed release tablet Start: 12/20/22 12:34:00 EDT, 1 tab, PO, bid, Disp# 60 tab, Refills: 4, PRN: as needed for arthritis, Pharmacy: [id number] Start Date: 12/20/22 Status: Ordered FreeStyle Gin 14 day sensor Start: 04/19/23 14:50:00 EDT, See Instructions, Disp# 6 each, Refills: 3, To be worn for diabetes monitoring, Pharmacy: [id number] Start Date: 04/19/23 Status: Ordered [...] Daily, Disp# 90 tab, Refills: 3, Pharmacy: [id number] Start Date: 08/23/22 Status: Ordered Mounjaro 2.5 mg/0.5 mL subcutaneous solution Start: 04/19/23 14:57:00 EDT, 2.5 mg =, subQ, q7days, Disp# 2 mL, Refills: 2, Pharmacy: [facility] Start Date: 04/19/23 Status: Ordered pravastatin 40 mg oral tablet Start: 04/20/23 11:48:00 EDT, 1 tab, PO, qhs, Disp# 90 tab, Refills: 3, Pharmacy: [facility] Start Date: 04/20/23 Stop Date: 04/14/24 Status: Ordered ProAir HFA 90 mcg/inh inhalation aerosol Start: 02/06/22 15:23:00 EDT, 1 puff, inhaled, qid, Disp# 6.7 g, Refills: 1, PRN: as needed for wheezing, Pharmacy: [id number] Start Date: 02/06/22 Stop Date: 03/06/22 Status: [...] 7:54:00 EDT Start Date: 12/24/20 Status: Ordered Problem List Condition Confirmation Course Effective Dates Status H ealth Status Informant Diabetes mellitus type II Confirmed Active Hyperlipidemia Confirmed Active Hypertension Confirmed Active Lumbago with sciatica Confirmed Active Myalgia due to statin Confirmed Active Post-menopausal Confirmed Active Hypovitaminosis D Confirmed Active Weight disorder Confirmed Active Procedures Procedure Date Related Diagnosis Body Site Status Cataract extraction 1 07/24/18 Com pleted Release of trigger finger 11/29/17 Completed Eye examination 2 05/28/17 Complet ed Mammogram 3 05/2016 Completed Fine needle aspiration (FNA) of breast using magnetic resonance imaging guidance 4, 5 04/29/15 Completed Mammogram 6 Completed Tubal ligation Completed 1L eye 2QD 20/20 OD 20/20 with correction f/u 1 yr 3Small nodule in right breast has resolved. Resume annual mammograms next May. 4Cytology: 1. Abundant histiocytes. 2. No malignant cells seen. 5left breast [id number] CAT 3 Probably Benign Results Laboratory List Name Date Comprehensive Metabolic Panel (COMP META B PANEL) 04/20/23 Hemoglobin A1C (HEMOGLOBIN, A1C) 04/20/23 Lipid Profile (LIPOPROTEINS) 04/20/23 Microalbumin, Urine, Random (MICROALBUMI N, RD UR) 04/20/23 Most recent to oldest [Reference Range]: 1 eGFR CKD-EPI [>60 mL/min/1.73 m2] >90 mL /min/1.73 m2 1 (04/20/23 10:51 AM) Estimated Average Glucose 157 mg/dL 2 (04/20/23 10:51 AM) Non-HDL 88 mg/dL 3 (04/20/23 10:51 AM) Estimated CrCl 68.21 mL/min (04/20/23 11:36 AM) Micro Alb (u) [<2.00 mg/dL] 7.72 mg/dL *HI* (04/20/23 10:51 AM) Anion Gap [5-14 mmol/L] 8 mmol/L (04/20/23 10:51 AM) Alb [3.5-5.0 g/dL] 4.2 g/dL (04/20/23 10:51 AM) Alk Phos [38-126 unit/L] 73 unit/L (04/20/23 10:51 AM) ALT [<35 unit/L] 21 unit/L (04/20/23 10:51 AM) AST [15-46 unit/L] 23 unit/L (04/20/23 10:51 AM) BUN [7-20 mg/dL] 19 mg/dL (04/20/23 10:51 AM) Ca [8.4-10.2 mg/dL] 8.9 mg/dL (04/20/23 10:51 AM) Chol/HDL 3 (04/20/23 10:51 AM) Chol [125-200 mg/dL] 144 mg/dL (04/20/23 10:51 AM) Cl- [96-107 mmol/L] 107 mmol/L (04/20/23 10:51 AM) HCO3 [22-30 mmol/L] 28 mmol/L (04/20/23 10:51 AM) Cret [0.60-1.00 mg/dL] 0.63 mg/dL (04/20/23 10:51 AM) HbA1c [4.0-6.0 %] 7.1 % *HI* (04/20/23 10:51 AM) Glu [74-106 mg/dL] 89 mg/dL (04/20/23 10:51 AM) HDL [>35 mg/dL] 56 mg/dL (04/20/23 10:51 AM) K [3.5-5.1 mmol/L] 4.2 mmol/L (04/20/23 10:51 AM) LDL Chol, Calculated [50-130 mg/dL] 63 m g/dL (04/20/23 10:51 AM) Micro Alb Ratio [<20 ug/mg cret] 71 ug/m g cret *HI* (04/20/23 10:51 AM) Na [137-145 mmol/L] 143 mmol/L (04/20/23 10:51 AM) T Bili [0.2-1.3 mg/dL] 0.6 mg/dL (04/20/23 10:51 AM) Prot [6.3-8.2 g/dL] 6.8 g/dL (04/20/23 10:51 AM) TG [<200 mg/dL] 125 mg/dL (04/20/23 10:51 AM) Creat (u) 109.49 mg/dL 4 (04/20/23 10:51 AM) 1Result Comment: Testing Performed By: Dept of Pathology [facility] [address], [address], [place] [address] 2Result Comment: Testing Performed By: Dept of Pathology [facility] [address], [address] [place] [address] 3Result Comment: Testing Performed By: Dept of Pathology [facility] [address], [address], [place] [address] 4Result Comment: Reference Range for Random Urine Not Established. Social History Social History Type Response Smoking Status Never smoked cigaret cedric Sex Female Patient Care team information Care Team Personnel Name: DO Guillen Mehwish Position: Physician Member Role: Primary Care Provider Address: Address: [address] [place] [address] [place] Care Team Related Persons Name: JARED GUILLEN Address: [place] Address: home [place] [facility] [id number]
--- OUTSIDE RECORDS SUMMARY | 2023-07-08 08:38 | External Medical Summary | Continuity of Care Document ---
Author Name Unknown Organization [address] Address [address] [place] [id number] Care Team Providers Care Cad Manager Name Role Phone Earline Guillen Primary Care Physician [phone] Encounter [facility] [id number] Date(s): 05/31/23 - 05/31/[address] [facility] [facility] [address], [address] [place] [address] [phone] Encounter Diagnosis Diabetes mellitus type II(Discharge Diagnosis) - 05/31/23 Hyperlipidemia(Discharge Diagnosis) - 05/31/23 Hypertension(Discharge Diagnosis) - 05/31/23 Hip arthritis(Discharge Diagnosis) - 05/31/23 Tendinopathy of right rotator cuff(Discharge Diagnosis) - 05/31/23 Need for influenza vaccination(Discharge Diagnosis) - 05/31/23 Discharge Disposition: Home or Self Care Attending Physician: DO Guillen Mehwish Referring Physician: DO Guillen Mehwish Allergies, Adverse Reactions, Alerts Substance Reaction Severity Status codeine Active morphine headache Active penicillins Active traMADol blister on lip Active Assessment and Plan Extracted from: Title:Office Visit Note Author:DO Guillen Me hwish Date:05/31/23 1.Diabetes mellitus type I I Patient reports normalblood glucose levelsat goal thus far. She notes that given blood glucose level she has not been using any Levemir at all. Okay to continue with only Mounjaro at current dose for now. We will plan to repeat labs BMP, hemoglobin A1c in 2 months She was advised to get labs completed prior to next appointment. 2.Hyperlipidemia At goal LDL less than 70,continuepravastatin 3.Hypertension At goal, stablecontinue lisinopril 4.Hip arthritis 5.Tendinopathy of right rotator cuff Persistent, well controlled withoral diclofenac. Discussed taking this as needed instead oftwice daily daily.Recent BMPwas reviewed with stablecreatinine and GFR. Refill provided. 6.Need for influenza vaccination High-dose influenza vaccine was administered today. Immunizations Given and Recorded Vaccine Date Status Refusal Reason influenza virus vaccine, inactivated 05/31/23 Give n pneumococcal 23-valent vaccine 1, 2 10/19/22 Given tetanus/diphtheria/pertuss, acel (Tdap) 3 10/19/22 Given pneumococcal 13-valent vaccine 06/26/17 Given 1Early/Late Reason: Early/Late Reason: Other : given at visit busy day entered juanito 2Result Comment: eriberto hicks [facility] 3Result Comment: eriberto hicks [facility] Medications BD needle Ultra-Fine Pen Itzel 32G x 4mm Start: 07/11/22 8:31:00 EST, See Instructions, Disp# 100 each, Refills: 6, use daily with lantus pen, Pharmacy: [id number] Start Date: 07/11/22 Status: Ordered diclofenac sodium 75 mg oral delayed release tablet Start: 05/31/23 14:49:00 EDT, 1 tab, PO, bid, Disp# 60 tab, Refills: 4, PRN: as needed for arthritis, Pharmacy: [facility] Start Date: 05/31/23 Status: Ordered FreeStyle Gin 14 day sensor Start: 05/18/23 21:03:00 EDT, See Instructions, Disp# 2 each, Refills: 0, Use to monitor blood glucose, Pharmacy: [facility] #[id number] Start Date: 05/18/23 Status: Ordered FreeStyle Gin 14 day sensor Start: 05/01/23 20:35:00 EDT, See Instructions, Disp# 6 each, Refills: 3, To be worn for diabetes monitoring, Pharmacy: [facility] Start Date: 05/01/23 Status: Ordered Ginkgo Biloba oral capsule Start: 12/24/20 7:55:00 EDT Start Date: 12/24/20 Status: Ordered Levemir FlexTouch 100 units/mL subcutaneous solution Start: 07/14/22 16:29:00 EST, 20 units, subQ, Daily, Disp# 15 mL, Refills: 6, Pharmacy: [facility] Start Date: 07/14/22 Status: Ordered lisinopril 10 mg oral tablet Start: 08/23/22 10:38:00 EST, 1 tab, PO, Daily, Disp# 90 tab, Refills: 3, Pharmacy: [facility] Start Date: 08/23/22 Status: Ordered Mounjaro 2.5 mg/0.5 mL subcutaneous solution Start: 04/19/23 14:57:00 EDT, 2.5 mg =, subQ, q7days, Disp# 2 mL, Refills: 2, Pharmacy: [facility] Start Date: 04/19/23 Status: Ordered pravastatin 40 mg oral tablet Start: 04/20/23 11:48:00 EDT, 1 tab, PO, qhs, Disp# 90 tab, Refills: 3, Pharmacy: [facility] Start Date: 04/20/23 Stop Date: 04/14/24 Status: Ordered ProAir HFA 90 mcg/inh inhalation aerosol Start: 02/06/22 15:23:00 EDT, 1 puff, inhaled, qid, Disp# 6.7 g, Refills: 1, PRN: as needed for wheezing, Pharmacy: [id number] Start Date: 02/06/22 Stop Date: 03/06/22 Status: Ordered Probiotic 10 Ultra Strength Start: 05/31/23 14:33:00 EDT Start Date: 05/31/23 Status: Ordered timolol Start: 12/24/20 7:55:00 EDT [...] Start Date: 12/24/20 Status: Ordered Mental Status 05/31/23 Barriers to Learning one year None evide nt Mandatory Health Literacy Documentation Yes Health Literacy Communication Barriers N ever Primary Language Divehi Problem List Condition Confirmation Course Effective Dates Status H ealth Status Informant Diabetes mellitus type II Confirmed Active Hyperlipidemia Confirmed Active Hypertension Confirmed Active Lumbago with sciatica Confirmed Active Myalgia due to statin Confirmed Active Post-menopausal Confirmed Active Hypovitaminosis D Confirmed Active Weight disorder Confirmed Active Diagnosis Diagnosis Type Effective Dates Health Status Clinical Service Informant Diabetes mellitus type II Discharge Diagnosis 05/31/23 Hyperlipidemia Discharge Diagnosis 05/31/23 Hypertension Discharge Diagnosis 05/31/23 Hip arthritis Discharge Diagnosis 05/31/23 Tendinopathy of right rotator cuff Discharge Diagnosis 05/31/23 Need for influenza vaccination Discharge Diagnosis 05/31/23 Procedures Procedure Date Related Diagnosis Body Site [...] 2. No malignant cells seen. 5left breast [id number] CAT 3 Probably Benign Vital Signs Most recent to oldest [Reference Range]: 1 Patient Weight 65 kg (05/31/23 2:35 PM) Heart Rate 69 bpm (05/31/23 2:35 PM) Respiratory Rate 20 br/min (05/31/23 2:35 PM) Blood Pressure 120/80mmHg (05/31/23 2:35 PM) Social History Social History Type Response Smoking Status Never smoked cigaret cedric Sex Female FCM Outpt Note * DO Guillen Mehwish: PERFORM Event Display: FCM Outpt Note Authored Date: [id number] Chief Complaint DM f/u - doing well on Mounjaro - side effects have submisided. BSG average 117 History of Present Illness Neftaly is a 68yo female who presents for f/u of type 2 DM- recent med change. Type 2 DM - last eye exam 2021 - last lipid profile Mar 2022 - Last hgb a1c 10/19/22- 7.2; 04/20/23 7.1 + urine microalbumin - on statin and CORAL inhibitor Blood glucose: -highest 178 -lowest 77 - AM glucose typically <130s Medications: - Mounjaro 2.5mg - not using levemir - appetite has decreased, - first and seconddose- got side effects, then went away, constipation, acid reflux- though resolved Arthritis - shoulder and wrist, - knee - seems to help - diclofenac daily- BID Physical Exam Vitals & Measurements HR:69(Monitored) RR:20 BP:120/80 SpO2:98% WT:65kg WT:65.000kg(Dosing) PHQ2 Data(Data Documented on:05/31/2023 14:33) Emotional health assessment NEGATIVE GENERAL APPEARANCE: The patient is alert, oriented and in no acute distress. HEENT: Head is normocephalic/atraumatic. LUNGS: Respirations even and unlabored. EXTREMITIES: No cyanosis, clubbing or edema. NEUROLOGICAL: Grossly non-focal exam. SKIN: Warm and dry without any rash. Assessment/Plan 1.Diabetes mellitus type II Patient reports normalblood glucose levelsat goal thus far. She notes that given blood glucose level she has not been using any Levemir at all. Okay to continue with only Mounjaro at current dose for now. We will plan to repeat labs BMP, hemoglobin A1c in 2 months She was advised to get labs completed prior to next appointment. 2.Hyperlipidemia At goal LDL less than 70,continuepravastatin 3.Hypertension At goal, stablecontinue lisinopril 4.Hip arthritis 5.Tendinopathy of right rotator cuff Persistent, well controlled withoral diclofenac. Discussed taking this as needed instead oftwice daily daily.Recent BMPwas reviewed with stablecreatinine and GFR. Refill provided. 6.Need for influenza vaccination High-dose influenza vaccine was administered today. Problem List/Past Medical History Ongoing Diabetes mellitus [...] 1 puff, inhaled, qid, PRN, 1 refills bifidobacterium-lactobacillus(Probiotic 10 Ultra Strength) cholecalciferol(Vitamin D3 2000 intl units oral capsule), 2000 Int_Unit= 1 cap, PO, Daily cyanocobalamin(Vitamin B12) diabetes supplies(FreeStyle Gin 14 day sensor), See Instructions diabetes supplies(FreeStyle Gin 14 day sensor), See Instructions, 3 [...] history is negative Immunizations Vaccine Date Status influenza virus vaccine, inactivated 05/31/2023 Given pneumococcal 23-valent vaccine 10/19/2022 Given Comments : Early/Late Reason: Other : given at visit busy day entered juanito eriberto hicks [facility] tetanus/diphtheria/pertuss, acel (Tdap) 10/19/2022 Given Comments : eriberto hicks [facility] pneumococcal 13-valent vaccine 06/26/2017 Given Recommendations Health Maintenance Pending(in the next year) OverDue Breast Cancer Screening due03/24/21and every 731day Due Adult COVID-19 Vaccination due05/31/23Unknown Frequency Hepatitis C Screening due05/31/23One-time only Medicare Annual Wellness Visit due05/31/23and every 1year Shingles Vaccine due05/31/23One-time only Due In Future Colorectal Cancer Screening not due until10/23/23and every 1year Diabetic Eye Exam not due until12/19/23and every 1year Adult Influenza Vaccine not due until02/25/24and every 1year Diabetes Management A1c not due until04/19/24and every 1year Body Mass Index not due until05/30/24and every 1year Satisfied(in the past 1 year) Satisfied Adult Influenza Vaccine on05/31/23.Satisfied by ADITYA Bro Gillian Adult Tdap/Td Vaccine on10/19/22.Satisfied by LILIAN Skelton Angela Body Mass Index on01/29/23.Satisfied by LILIAN Bryant Angela M Colorectal Cancer Screening on10/23/22.Satisfied by ADITYA Bro Gillian Diabetes Management A1c on04/20/23.Satisfied by Contributor_system, [email or web address] Diabetes Nephropathy Management on04/20/23.Satisfied by Contributor_system, [email or web address] Lipid Screening on04/20/23.Satisfied by Contributor_system, [email or web address] Electronic Signature on File Electronically Reviewed/Signed by: Earline Guillen DO Author Signature Dt/Tm:05/31/2023 02:58 PM Division of Sports Medicine MM Patient Care team information Care Team Personnel Name: DO Guillen Mehwish Position: Physician Member Role: Primary Care Provider Address: Address: [address] [place] [address] [place] Care Team Related Persons Name: JARED GUILLEN Address: [place] Address: home [place] [phone]
--- OUTSIDE RECORDS SUMMARY | 2023-07-08 08:38 | External Medical Summary | Continuity of Care Document ---
Author Name Unknown Organization [facility] [id number] Address [address] [place] [id number] Care Team Providers Care Clinical Nutritionist Name Role Phone Gurdeep Jensen Primary Care Physician [phone] Encounter [facility] [id number] Date(s): 02/26/23 - 02/26/23 [facility] 0 E Archetypes [facility] 112A [facility] Medicine [address] [facility], [address] [place] [id number] Encounter Diagnosis Right wrist pain(Discharge Diagnosis) - 02/26/23 Wrist tendonitis(Discharge Diagnosis) - 02/26/23 Discharge Disposition: Home or Self Care Attending Physician: DO Guillen Mehwish Allergies, Adverse Reactions, Alerts Substance Reaction Severity Status codeine Active penicillins Active traMADol blister on lip Active Assessment and Plan Extracted from: Title:Office Visit Note Author:DO Guillen Me hwish Date:02/26/23 1.Right wrist pain 2.Wrist tendonitis Improving based on symptoms but also on exam today. Encouraged her to do exercises at home- handout was reviewed and provided to her. She notes she has previously had hand surgery for trigger finger and exercises are similar so she will be able to do them independently. Continue Aspercreme for pain relief. Try voltaren gel if able to purchase OTC. Follow-up PRN. If worsening, can consider US-guided injection of ECU/FCU. Immunizations Given and Recorded Vaccine Date Status Refusal Reason pneumococcal 23-valent vaccine 1, 2 10/19/22 Given tetanus/diphtheria/pertuss, acel (Tdap) 3 10/19/22 Given pneumococcal 13-valent vaccine 06/26/17 Given 1Early/Late Reason: Early/Late Reason: Other : given at visit busy day entered juanito 2Result Comment: eriberto hicks [facility] 3Result Comment: eriberto hicks [facility] Medications BD needle Ultra-Fine Pen Itzel 32G x 4mm Start: 07/11/22 8:31:00 EST, See Instructions, Disp# 100 each, Refills: 6, use daily with lantus pen, Pharmacy: [facility] 2229 Start Date: 07/11/22 Status: Ordered Cinnamon Start: 10/19/22 14:03:00 EST, with chromin Start Date: 10/19/22 Status: Ordered diclofenac sodium 75 mg oral delayed release tablet Start: 12/20/22 12:34:00 EDT, 1 tab, PO, bid, Disp# 60 tab, Refills: 4, PRN: as needed for arthritis, Pharmacy: [facility] Start Date: 12/20/22 Status: Ordered FreeStyle Gin 14 day reader Start: 10/28/18 8:50:00 EST, See Instructions, Disp# 6 unit, For ongoing diabetic care, Pharmacy: [facility] Start Date: 10/28/18 Status: Ordered FreeStyle Gin 14 day sensor Start: 10/19/22 14:47:00 EST, See Instructions, Disp# 4 each, Refills: 3, To be worn for diabetes monitoring, Pharmacy: [facility] Start Date: 10/19/22 Status: Ordered Ginkgo Biloba oral capsule Start: 12/24/20 7:55:00 EDT Start Date: 12/24/20 Status: Ordered Levemir FlexTouch 100 units/mL subcutaneous solution Start: 07/14/22 16:29:00 EST, 20 units, subQ, Daily, Disp# 15 mL, Refills: 6, Pharmacy: [facility] Start Date: 07/14/22 Status: Ordered lisinopril 10 mg oral tablet Start: 08/23/22 10:38:00 EST, 1 tab, PO, Daily, Disp# 90 tab, Refills: 3, Pharmacy: [facility] Start Date: 08/23/22 Status: Ordered pravastatin 40 mg oral tablet Start: 01/16/22 16:29:00 EDT, 1 tab, PO, qhs, Disp# 90 tab, Refills: 3, Pharmacy: [facility] Start Date: 01/16/22 Stop Date: 01/11/23 Status: Ordered ProAir HFA 90 mcg/inh inhalation aerosol Start: 02/06/22 15:23:00 EDT, 1 puff, inhaled, qid, Disp# 6.7 g, Refills: 1, PRN: as needed for wheezing, Pharmacy: [id number] Start Date: 02/06/22 Stop Date: 03/06/22 Status: [...] Start Date: 12/24/20 Status: Ordered Mental Status 02/26/23 Barriers to Learning one year None evide nt Mandatory Health Literacy Documentation Yes Health Literacy Communication Barriers N ever Primary Language Macedonian Problem List Condition Confirmation Course Effective Dates Status H ealth Status Informant Diabetes mellitus type II Confirmed Active Hyperlipidemia Confirmed Active Hypertension Confirmed Active Lumbago with sciatica Confirmed Active Myalgia due to statin Confirmed Active Post-menopausal Confirmed Active Hypovitaminosis D Confirmed Active Weight disorder Confirmed Active Diagnosis Diagnosis Type Effective Dates Health Status Clinical Service Informant Right wrist pain Discharge Diagnosis 02/26/23 Wrist tendonitis Discharge Diagnosis 02/26/23 Procedures Procedure Date Related Diagnosis Body Site [...] 2. No malignant cells seen. 5left breast [id number] CAT 3 Probably Benign Social History Social History Type Response Smoking Status Never smoked cigaret cedric Sex Female Ortho Outpt Note * DO Guillen Mehwish: PERFORM Event Display: Ortho Outpt Note Authored Date: [id number] Chief Complaint right wrist follow-up History of Present Illness Neftaly is RHD 68yo female who presents for f/u of right wrist pain. Overall, wrist is feeling pretty good. Wearing brace with activity. Has had to do some heavy lifting- which exacerbates her pain. Not having sharp pain anymore. Even numbness/tingling has improved with use of wrist brace. Physical Exam GENERAL APPEARANCE: The patient is alert, oriented and in no acute distress. HEENT: Head is normocephalic/atraumatic. LUNGS: Respirations even and unlabored. EXTREMITIES: No cyanosis, clubbing or edema. NEUROLOGICAL: Grossly non-focal exam. SKIN: Warm and dry without any rash. MUSCULOSKELETAL: Right Wrist/Hand Exam Appearance: no edema no ecchymosis bony anatomy appears normal Palpation: +TTP over ECU tendon, FCU tendon negative TTP over area of ulnar carpal joint/TFCC ROM: Decreased ROM with wrist extension without discomfort. Decreased flexion with pain. No pain with active ulnar deviation or radial deviation. No pain with supination/pronation and full ROM. Able to make a full fist. Strength: 5-/5 wrist flexion with pain 5/5wrist extensionwithout pain 5-/5 ulnar deviation with pain 5/5radial deviation without pain 5/5finger abduction Sensation: sensation to light touchintact over ulnar, median and ulnarnerve distribution Special Tests: negative Tinel reproduces symptoms in digits 2 and 3 negative TFCC Grind Assessment/Plan 1.Right wrist pain 2.Wrist tendonitis Improving based on symptoms but also on exam today. Encouraged her to do exercises at home- handoutwas reviewed and provided to her. She notes she has previously had hand surgery for trigger finger and exercises are similar so she will be able to do them independently. Continue Aspercreme for pain relief. Try voltaren gel if able to purchase OTC. Follow-up PRN. If worsening, can consider US-guided injection of ECU/FCU. Problem List/Past Medical History Ongoing Diabetes mellitus [...] cap, PO, Daily cinnamon(Cinnamon) cyanocobalamin(Vitamin B12) diabetes supplies(FreeStyle Gin 14 day sensor), See Instructions, 3 refills diabetic supplies(FreeStyle Gin 14 day reader), See Instructions diclofenac(diclofenac sodium 75 mg oral delayed release [...] x 4mm), See Instructions, 6 refills timolol travoprost ophthalmic(travoprost 0.004% ophthalmic solution), 1 drop, both eyes, qPM zinc sulfate(Zinc) Allergies codeine penicillins traMADolblister on lip Social History Smoking Status Never smoked cigarettes Alcohol - Denies Alcohol Use Exercise - Regular exercise Tobacco - Denies Tobacco Use Use:Never smoker Family History Family history is negative Immunizations Vaccine Date Status pneumococcal 23-valent vaccine 10/19/2022 Given Comments : Early/Late Reason: Other : given at visit busy day entered juanito hicks [facility] tetanus/diphtheria/pertuss, acel (Tdap) 10/19/2022 Given Comments : eriberto hicks [facility] pneumococcal 13-valent vaccine 06/26/2017 Given Recommendations Health Maintenance Pending(in the next year) OverDue Breast Cancer Screening due03/24/21and every 731day Diabetic Eye Exam due12/14/22and every 1year Due Adult Influenza Vaccine due02/24/23and every 1year Adult COVID-19 Vaccination due02/26/23Unknown Frequency Hepatitis C Screening due02/26/23One-time only Medicare Annual Wellness Visit due02/26/23and every 1year Shingles Vaccine due02/26/23One-time only Due In Future Diabetes Management A1c not due until10/19/23and every 1year Colorectal Cancer Screening not due until10/23/23and every 1year Body Mass Index not due until01/29/24and every 1year Satisfied(in the past 1 year) Satisfied Adult Tdap/Td Vaccine on10/19/22.Satisfied by LILIAN Skelton Angela Body Mass Index on01/29/23.Satisfied by LILIAN Bryant Angela M Colorectal Cancer Screening on10/23/22.Satisfied by ADITYA Bro, Rima Diabetes Management A1c on10/19/22.Satisfied by Contributor_system, [email or web address] Diabetes Nephropathy Management on04/20/22.Satisfied by Contributor_system, [email or web address] Lipid Screening on04/20/22.Satisfied by Contributor_system, [email or web address] Electronic Signature on File Electronically Reviewed/Signed by: Earline Guillen DO Author Signature Dt/Tm:02/26/2023 01:46 PM Division of Sports Medicine MM Patient Care team information Care Team Related Persons Name: JARED GUILLEN Logan Address: [place] Address: home [address] [facility], [place] [id number]
--- OUTSIDE RECORDS SUMMARY | 2023-07-08 08:38 | External Medical Summary | Continuity of Care Document ---
Author Name Unknown Organization [facility] [address] [address] [place] [phone] Care Team Providers Care Cattle Dehorner Name Role Phone Earline Guillen Primary Care Physician [phone] Encounter [facility] [id number] Date(s): 06/26/23 - 06/26/23 [facility] 0 [facility] [place] [address] [facility] [address] [address] [phone] Encounter Diagnosis UTI symptoms(Discharge Diagnosis) - 06/26/23 Unspecified symptoms and signs involving the genitourinary system(Final) - Discharge Disposition: Home or Self Care Attending Physician: MD Treviño Dongsheng Referring Physician: MD Treviño Dongsheng Allergies, Adverse Reactions, Alerts Substance Reaction Severity Status codeine Active morphine headache Active penicillins Active traMADol blister on lip Active Assessment and Plan Extracted from: Title:UTI Author:DO Gonzales Sophia El izabeth Date:06/26/23 UTI symptoms - acute - UA and culture sent - favor UTI vs. pyelo as back pain symptoms seem more MSK in origin - prescribed nitrofurantoin BID x5 days - advised pt to call office if symptoms do not resolve or worsen Immunizations Given and Recorded Vaccine Date Status Refusal Reason influenza virus vaccine, inactivated 05/31/23 Give n pneumococcal 23-valent vaccine 1, 2 10/19/22 Given tetanus/diphtheria/pertuss, acel (Tdap) 3 10/19/22 Given pneumococcal 13-valent vaccine 06/26/17 Given 1Early/Late Reason: Early/Late Reason: Other : given at visit busy day entered juanito 2Result Comment: eriberto hicks [facility] service [facility] 3Result Comment: eriberto hicks [facility] service [facility] Medications BD needle Ultra-Fine Pen Itzel 32G x 4mm Start: 07/11/22 8:31:00 EST, See Instructions, Disp# 100 each, Refills: 6, use daily with lantus pen, Pharmacy: [facility] Start Date: 07/11/22 Status: Ordered diclofenac sodium 75 mg oral delayed release tablet Start: 05/31/23 14:49:00 EDT, 1 tab, PO, bid, Disp# 60 tab, Refills: 4, PRN: as needed for arthritis, Pharmacy: [facility] Start Date: 05/31/23 Status: Ordered FreeStyle Gin 14 day sensor Start: 05/18/23 21:03:00 EDT, See Instructions, Disp# 2 each, Refills: 0, Use to monitor blood glucose, Pharmacy: [facility] #[id number] Start Date: 05/18/23 Status: Ordered FreeStyle Gin 14 day sensor Start: 05/01/23 20:35:00 EDT, See Instructions, Disp# 6 each, Refills: 3, To be worn for diabetes monitoring, Pharmacy: [facility] Start Date: 05/01/23 Status: Ordered Ginkgo Biloba oral capsule Start: 12/24/20 7:55:00 EDT Start Date: 12/24/20 Status: Ordered Levemir FlexTouch 100 units/mL subcutaneous solution Start: 07/14/22 16:29:00 EST, 20 units, subQ, Daily, Disp# 15 mL, Refills: 6, Pharmacy: [facility] Start Date: 07/14/22 Status: Ordered lisinopril 10 mg oral tablet Start: 08/23/22 10:38:00 EST, 1 tab, PO, Daily, Disp# 90 tab, Refills: 3, Pharmacy: [facility] Start Date: 08/23/22 Status: Ordered Mounjaro 2.5 mg/0.5 mL subcutaneous solution Start: 04/19/23 14:57:00 EDT, 2.5 mg =, subQ, q7days, Disp# 2 mL, Refills: 2, Pharmacy: [facility] Start Date: 04/19/23 Status: Ordered nitrofurantoin macrocrystals 100 mg oral capsule Start: 06/26/23 8:20:00 EDT, 1 cap, PO, bid, Disp# 10 cap, Refills: 0, Pharmacy: [facility] 2229 Start Date: 06/26/23 Stop Date: 07/01/23 Status: Ordered pravastatin 40 mg oral tablet Start: 04/20/23 11:48:00 EDT, 1 tab, PO, qhs, Disp# 90 tab, Refills: 3, Pharmacy: [facility] Start Date: 04/20/23 Stop Date: 04/14/24 Status: Ordered ProAir HFA 90 mcg/inh inhalation aerosol Start: 02/06/22 15:23:00 EDT, 1 puff, inhaled, qid, Disp# 6.7 g, Refills: 1, PRN: as needed for wheezing, Pharmacy: [facility] Start Date: 02/06/22 Stop Date: [...] Start Date: 12/24/20 Status: Ordered Mental Status 06/26/23 Barriers to Learning one year None evide nt Mandatory Health Literacy Documentation Yes Health Literacy Communication Barriers N ever Primary Language Kyrgyz Problem List Condition Confirmation Course Effective Dates Status H ealth Status Informant Diabetes mellitus type II Confirmed Active Hyperlipidemia Confirmed Active Hypertension Confirmed Active Lumbago with sciatica Confirmed Active Myalgia due to statin Confirmed Active Post-menopausal Confirmed Active Hypovitaminosis D Confirmed Active Weight disorder Confirmed Active Diagnosis Diagnosis Type Effective Dates Health Status Cl inical Service Informant UTI symptoms Discharge Diagnosis 06/26/23 Non-Specified Procedures Procedure Date Related Diagnosis Body Site [...] 2. No malignant cells seen. 5left breast [id number] CAT 3 Probably Benign Results Laboratory List Name Date Urine Analysis w/ Reflexed Microscopic. (URINE W/REFLEX MICR) 06/26/23 Most recent to oldest [Reference Range]: 1 Bili (u) [NEG] NEGATIVE *Unknown* (06/26/23 8:51 AM) Ketones [NEG mg/dL] NEGATIVE mg/dL (06/26/23 8:51 AM) Leuk Est [NEG] TRACE 1 *Abnormal* (06/26/23 8:51 AM) Nitrite (u) [NEG] NEGATIVE *Unknown* (06/26/23 8:51 AM) Appear (u) CLEAR *Unknown* (06/26/23 8:51 AM) Color (u) YELLOW *Unknown* (06/26/23 8:51 AM) Glu (u) [NEG mg/dL] NEGATIVE mg/dL (06/26/23 8:51 AM) Hgb (u) [NEG] SMALL *Abnormal* (06/26/23 8:51 AM) pH (u) [4.5-8.0 unit] 6.0 unit (06/26/23 8:51 AM) Prot (u) [NEG mg/dL] NEGATIVE mg/dL (06/26/23 8:51 AM) Urobili [0.1-1.0 EU/dL] 0.2 EU/dL (06/26/23 8:51 AM) SG [1.005-1.030] 1.020 (06/26/23 8:51 AM) 1Result Comment: Testing Performed By: Dept of Pathology [facility] [address] [address], [address], [place] [address] Orders for Microbiology Reports Name Date Urine Culture (CULTURE, URINE) 06/26/23 Microbiology Reports TEST:Urine.Cx STATUS:Auth (Verified) BODY SITE: SOURCE:Urine COLLECTED DATE/TIME:06/26/23 8:51 AM Status FINAL 06/28/2023 Vital Signs Most recent to oldest [Reference Range]: 1 Patient Weight 60.6 kg (06/26/23 8:01 AM) Heart Rate 62 bpm (06/26/23 8:01 AM) Respiratory Rate 16 br/min (06/26/23 8:01 AM) Blood Pressure 146/88mmHg (06/26/23 8:01 AM) BP Location # 1 Left Arm (06/26/23 8:01 AM) Social History Social History Type Response Smoking Status Never smoked cigaret cedric Sex Female FCM Outpt Note * MD Hudson, Brooke: MODIFY MD Hudson, Brooke: MODIFY Event Display: FCM Outpt Note Authored Date: [id number] Chief Complaint possible UTI - urinary frequency, right sided back pain radiating into leg since sunday. History of Present Illness Pt is a 68 yo female with PMH of DM, HLD, and HTN presenting with urinary symptoms. Urinary symptoms - started Sunday morning - urinary frequency, constantly feeling like she has to urinate, slight burning all the time - right side of her back is also painful mostly around her right hip and it's radiating down her right leg; no hx of back problems - endorses nausea/acid reflux, hot flashes - denies blood in urine, vomiting, diarrhea, fevers - hx of UTIs, kidney stones; no hx of pyelo - took Azo-like medication which helped her symptoms slightly Review of Systems As per HPI Physical Exam Vitals & Measurements HR:62(Monitored) RR:16 BP:146/88 SpO2:99% WT:60.6kg WT:60.600kg(Dosing) PHQ2 Data(Data Documented on:06/26/2023 08:01) Emotional health assessment NEGATIVE General:well appearing, alert and oriented, no acute distress Cardiovascular: RRR, no murmur noted. No LE edema. Respiratory:clear to auscultation bilaterally, respirations are non-labored, breath sounds are equal withappropriate air entry. No rhonchi, crackles, or wheezing. Abdomen: Scott's sign negative bilaterally Psych: Mood and affect congruent and appropriate. Speech is of normal pace and content. Assessment/Plan UTI symptoms - acute - UA and culture sent - favor UTI vs. pyelo as back pain symptoms seem more MSK in origin - prescribed nitrofurantoin BID x5 days - advised pt to call office if symptoms do not resolve or worsen Attestation Preceptor note:I reviewed and discussed the history and physical exam findings with the resident physician and agree with the above impression and plan. Brooke Treviño MD Problem List/Past Medical History Ongoing Diabetes mellitus [...] mg= 1 tab, PO, Daily, 3 refills nitrofurantoin(nitrofurantoin macrocrystals 100 mg oral capsule), 100 mg= 1 cap, PO, bid pravastatin(pravastatin 40 mg oral tablet), 40 mg= [...] due03/24/21and every 731day Due Adult COVID-19 Vaccination due06/26/23Unknown Frequency Hepatitis C Screening due06/26/23One-time only Medicare Annual Wellness Visit due06/26/23and every 1year Shingles Vaccine due06/26/23One-time only Due In Future Colorectal Cancer Screening not due until10/23/23and every 1year Diabetic Eye Exam not due until12/20/23and every 366day Adult Influenza Vaccine not due until02/25/24and every 1year Diabetes Management A1c not due until04/20/24and every 366day Body Mass Index not due until06/25/24and every 1year Satisfied(in the past 1 year) Satisfied Adult Influenza Vaccine on05/31/23.Satisfied by ADITYA Bro Gillian Adult Tdap/Td Vaccine on10/19/22.Satisfied by LILIAN Skelton Angela Body Mass Index on01/29/23.Satisfied by LILIAN Bryant Angela M Colorectal Cancer Screening on10/23/22.Satisfied by ADITYA Bro Gillian Diabetes Management A1c on04/20/23.Satisfied by Vusion_system, [email or web address] Diabetes Nephropathy Management on04/20/23.Satisfied by Contributor_system, [email or web address] Lipid Screening on04/20/23.Satisfied by Contributor_system, [email or web address] Electronic Signature on File Electronically Reviewed/Signed by: Rita Gonzales DO Author Signature Dt/Tm:06/26/2023 08:45 AM Resident Department of Family Medicine Electronically Reviewed/Signed by: Brooke Treviño MD Cosigner Signature Dt/Tm: 06/26/2023 10:56 AM Department of Family Medicine SES Patient Care team information Care Team Personnel Name: DO Guillen Mehwish Position: Physician Member Role: Primary Care Provider [place] [address] [facility] [place] [address] [place] [address] Care Team Related Persons Name: JARED GUILLEN Address: [place] Address: home [place] [phone]
--- OUTSIDE RECORDS SUMMARY | 2023-07-08 08:38 | External Medical Summary | Continuity of Care Document ---
Author Name Unknown Organization [id number] Address [address] [place] [address] [id number] Care Team Providers Care Account Support Specialist Name Role Phone Gurdeep Jensen Primary Care Physician [phone] Encounter [facility] IVELISSE [id number] Date(s): 01/29/23 - 01/29/23 [facility] [address] [place] [id number] [facility] Medicine [address] [place] [id number] Encounter Diagnosis Right wrist pain(Discharge Diagnosis) - 01/29/23 Wrist tendonitis(Discharge Diagnosis) - 01/29/23 Carpal tunnel syndrome, right(Discharge Diagnosis) - 01/30/23 Right hand paresthesia(Discharge Diagnosis) - 01/30/23 Discharge Disposition: Home or Self Care Attending Physician: DO Guillen Mehwish Allergies, Adverse Reactions, Alerts Substance Reaction Severity Status codeine Active penicillins Active traMADol blister on lip Active Assessment and Plan Extracted from: Title:Office Visit Note Author:DO Guillen Me hwish Date:01/29/23 1.Right wrist pain 2.Wrist tendonitis 3.Carpal tunnel syndrome, right 4.Right hand paresthesia Patient presenting with ulnar-sided right wrist painin the setting of increased activity. She denies any acute onsetof her symptoms makingan acute TFCC injury less likely. Pain localizes over ECU and FCU tendons. X-ray images were obtainedwhich demonstratemild arthritic changes as well as mild soft tissue swellinganterior to the carpal bones. At this timediscussed recommendation to use a wrist immobilizer. I showed her the type of brace to purchase and she will get this from a local pharmacy/retail store. We will plan to follow-up in 4 weeks. If improving, may benefit from formal PT and/or prolonged use of wrist immobilizer with activity. Additionally, will continue to monitor right hand paresthesias consistent with carpal tunnel syndrome. Will benefit from brace as above. If persistent, may benefit from injection and/or PT. Immunizations Given and Recorded Vaccine Date Status Refusal Reason pneumococcal 23-valent vaccine 1, 2 10/19/22 Given tetanus/diphtheria/pertuss, acel (Tdap) 3 10/19/22 Given pneumococcal 13-valent vaccine 06/26/17 Given 1Early/Late Reason: Early/Late Reason: Other : given at visit busy day entered juanito 2Result Comment: eriberto hicks data typist 3Result Comment: eriberto hicks [facility] Medications BD needle Ultra-Fine Pen Itzel 32G x 4mm Start: 07/11/22 8:31:00 EST, See Instructions, Disp# 100 each, Refills: 6, use daily with lantus pen, Pharmacy: [id number] Start Date: 07/11/22 Status: Ordered Cinnamon Start: 10/19/22 14:03:00 EST, with chromin Start Date: 10/19/22 Status: Ordered diclofenac sodium 75 mg oral delayed release tablet Start: 12/20/22 12:34:00 EDT, 1 tab, PO, bid, Disp# 60 tab, Refills: 4, PRN: as needed for arthritis, Pharmacy: [id number] Start Date: 12/20/22 Status: Ordered FreeStyle Gin 14 day reader Start: 10/28/18 8:50:00 EST, See Instructions, Disp# 6 unit, For ongoing diabetic care, Pharmacy: [facility] Start Date: 10/28/18 Status: Ordered FreeStyle Gin 14 day sensor Start: 10/19/22 14:47:00 EST, See Instructions, Disp# 4 each, Refills: 3, To be worn for diabetes monitoring, Pharmacy: [id number] Start Date: 10/19/22 Status: Ordered Ginkgo Biloba oral capsule Start: 12/24/20 7:55:00 EDT Start Date: 12/24/20 Status: Ordered Levemir FlexTouch 100 units/mL subcutaneous solution Start: 07/14/22 16:29:00 EST, 20 units, subQ, Daily, Disp# 15 mL, Refills: 6, Pharmacy: [facility] Start Date: 07/14/22 Status: Ordered lisinopril 10 mg oral tablet Start: 08/23/22 10:38:00 EST, 1 tab, PO, Daily, Disp# 90 tab, Refills: 3, Pharmacy: [facility] Start Date: 08/23/22 Status: Ordered pravastatin 40 mg oral tablet Start: 01/16/22 16:29:00 EDT, 1 tab, PO, qhs, Disp# 90 tab, Refills: 3, Pharmacy: [facility] Start Date: 01/16/22 Stop Date: 01/11/23 Status: Ordered ProAir HFA 90 mcg/inh inhalation aerosol Start: 02/06/22 15:23:00 EDT, 1 puff, inhaled, qid, Disp# 6.7 g, Refills: 1, PRN: as needed for wheezing, Pharmacy: [facility] Start Date: 02/06/22 Stop Date: [...] Start Date: 12/24/20 Status: Ordered Mental Status 01/29/23 Barriers to Learning one year None evide nt Mandatory Health Literacy Documentation Yes Health Literacy Communication Barriers N ever Primary Language Pakistani Problem List Condition Confirmation Course Effective Dates Status H ealth Status Informant Diabetes mellitus type II Confirmed Active Hyperlipidemia Confirmed Active Hypertension Confirmed Active Lumbago with sciatica Confirmed Active Myalgia due to statin Confirmed Active Post-menopausal Confirmed Active Hypovitaminosis D Confirmed Active Weight disorder Confirmed Active Diagnosis Diagnosis Type Effective Dates Health Status Clinical Service Informant Right wrist pain Discharge Diagnosis 01/29/23 Wrist tendonitis Discharge Diagnosis 01/29/23 Right hand paresthesia Discharge Diagnosis 01/30/23 Carpal tunnel syndrome, right Discharge Diagnosis 01/30/23 Procedures Procedure Date Related Diagnosis Body Site [...] 2. No malignant cells seen. 5left breast [id number] CAT 3 Probably Benign Vital Signs Most recent to oldest [Reference Range]: 1 Height 147.5 cm (01/29/23 1:48 PM) Patient Weight 65.2 kg (01/29/23 1:48 PM) Body Mass Index 29.97 kg/m2 (01/29/23 1:48 PM) Social History Social History Type Response Smoking Status Never smoked cigaret cedric Sex Female Ortho Outpt Note * DO Guillen Mehwish: PERFORM Event Display: Ortho Outpt Note Authored Date: [id number] Chief Complaint Right wrist and hand pain x 2 weeks. Only has pain at night. No injury. Numbness at times in hand. History of Present Illness Neftaly is a RHD, 68yo female who presents for evaluation of right-sided ulnar wrist pain. Right wrist pain- onset 2-4 weeks. No acute injury. Gradual onset. Has been doing more lifting over the past few weeks, cleaning out basement/house. Sometimes pain is a 10/10, sharp, shooting pain. Using Tylenol and Aspercreme. Pain is worse with mowing lawn and heavy lifting. No weakness. Occasional numbness/tingling. Physical Exam Vitals & Measurements HT:147.5cm WT:65.2kg WT:65.200kg(Dosing) BMI:29.97 GENERAL APPEARANCE: The patient is alert, oriented and in no acute distress. HEENT: Head is normocephalic/atraumatic. LUNGS: Respirations even and unlabored. EXTREMITIES: No cyanosis, clubbing or edema. NEUROLOGICAL: Grossly non-focal exam. SKIN: Warm and dry without any rash. MUSCULOSKELETAL: Wrist/Hand Exam Appearance: no edema no ecchymosis bony anatomy appears normal Palpation: +TTP over ECU tendon, FCU tendon +TTP over area of ulnar carpal joint/TFCC ROM: Has decreased ROM with wrist extension with discomfort. Decreased flexion with pain. Pain with ulnar and radial deviation. No pain with supination/pronation. Able to make a full fist. Strength: 5/5 wrist flexion with pain 5/5wrist extensionwith pain 5/5 ulnar deviation with pain 5/5radial deviation with ulnar sided pain 5/5finger abduction Sensation: sensation to light touchintact over ulnar, median and ulnarnerve distribution Special Tests: +Tinel reproduces symptoms in digits 2 and 3 positive TFCC Grind Diagnostic Results RIGHT WRIST 3 VIEWS CLINICAL HISTORY: Right wrist pain. FINDINGS: 3 views of the right wrist are compared to study dated 11/16/2015. The skeletal structures are osteopenic. No fracture is seen. There is mild degenerative narrowing at the radiocarpal articulation. Mild osteoarthritic change is seen throughout the wrist, greatest at the first carpometacarpal joint. There is negative ulnar variance. No erosive disease is seen. Mild soft tissue calcifications are seen anterior to proximal carpal bones on the lateral view. Mild soft tissue swelling is seen around the wrist. IMPRESSION: 1. Mild soft tissue swelling with no acute bony abnormality identified. 2. Mild arthritic change as above. Electronically signed by: Dick Briseno M.D. 01/29/2023 2:51 PM Assessment/Plan 1.Right wrist pain 2.Wrist tendonitis 3.Carpal tunnel syndrome, right 4.Right hand paresthesia Patient presenting with ulnar-sided right wrist painin the setting of increased activity. She denies any acute onsetof her symptoms makingan acute TFCC injury less likely. Pain localizes over ECU and FCU tendons. X- ray images were obtainedwhich demonstratemild arthritic changes as well as mild soft tissue swellinganterior to the carpal bones. At this timediscussed recommendation to use a wrist immobilizer. I showed her the type of brace to purchase and she will get this from a local pharmacy/retail store. We will plan to follow-up in 4 weeks. If improving, may benefit from formal PT and/or prolonged useof wrist immobilizer with activity. Additionally, will continue to monitor right hand paresthesias consistent with carpal tunnel syndrome. Will benefit from brace as above. If persistent, may benefit from injection and/or PT. Problem List/Past Medical History Ongoing Diabetes mellitus [...] Screening due03/24/21and every 731day Adult Influenza Vaccine due02/24/22and every 1year Due Diabetic Eye Exam due12/14/22and every 1year Adult COVID-19 Vaccination due01/30/23Unknown Frequency Hepatitis C Screening due01/30/23One-time only Medicare Annual Wellness Visit due01/30/23and every 1year Shingles Vaccine due01/30/23One-time only Due In Future Diabetes Management A1c not due until10/19/23and every 1year Colorectal Cancer Screening not due until10/23/23and every 1year Body Mass Index not due until01/29/24and every 1year Satisfied(in the past 1 year) Satisfied Adult Tdap/Td Vaccine on10/19/22.Satisfied by LILIAN Skelton Angela Body Mass Index on01/29/23.Satisfied by LILIAN Bryant, Fabiola M Colorectal Cancer Screening on10/23/22.Satisfied by ADITYA Bro, Rima Diabetes Management A1c on10/19/22.Satisfied by Contributor_system, [id number] Diabetes Nephropathy Management on04/20/22.Satisfied by Contributor_system, [email or web address] Lipid Screening on04/20/22.Satisfied by Contributor_system, [id number] Electronic Signature on File Electronically Reviewed/Signed by: Earline Guillen DO Author Signature Dt/Tm:01/30/2023 12:43 AM Division of Sports Medicine MM Patient Care team information Care Team Related Persons Name: JARED GUILLEN Address: [place] Address: home [address] [facility], [place] [id number]
== END 2023-07-05 13:59 | disposition home or self-care (01) ==
LOC: ED 00:12 → EDINP 00:12 → 3N 11:27
DX: Z88.1 Allergy status to other antibiotic agents; E11.9 Type 2 diabetes mellitus without complications; I10 Essential (primary) hypertension; Z88.5 Allergy status to narcotic agent; Z79.899 Other long term (current) drug therapy; Z87.440 Personal history of urinary (tract) infections; F17.200 Nicotine dependence, unspecified, uncomplicated; Z88.0 Allergy status to penicillin; Z79.4 Long term (current) use of insulin; Z87.442 Personal history of urinary calculi; N13.2 Hydronephrosis with renal and ureteral calculous obstruction